=== PATIENT | male | born 1950 | race Caucasian/White ===

== ENCOUNTER 2017-03-16 04:49 | Emergency (ER) | payer MEDICARE, BC ==
[2017-03-16] MEDS ORDERED: cefTRIAXone(*) 1 GM in NS 0.9% 50 ML* 50 ML IVPB ONE (08:22)
[2017-03-16] MEDS ORDERED: Tetan/Diph/Pertus SYR(Tdap)* 0.5 ML SYR(BOOSTRIX) use SYR IM ONE (08:22)
[2017-03-16] MEDS ORDERED: NS 0.9% 1000 ML* 1,000 ML IV ONE (08:29)
--- NOTE | 2017-03-16 08:30 | RAD ---
INDICATION: Productive cough COMPARISON: December 25, 2007 TECHNIQUE: An AP portable view obtained at 0730 hours is submitted. FINDINGS: Bones/Soft Tissues: There are no acute bony findings. Cardiomediastinal: The cardiomediastinal silhouette is normal. Lungs: There are no infiltrates. Pleura: There are no pleural effusions. Other: None IMPRESSION: NORMAL CHEST.
[2017-03-16 09:27] LABS: ABS Basophils 0.1 10^3/ul (0-0.2); ABS Eosinophils 0.3 10^3/ul (0-0.6); ABS Lymphocytes 1.9 10^3/ul (1.0-4.8); ABS Neutrophils 8.7 10^3/ul (1.5-7.7); ABS Nucleated RBC 0 10^3/ul; Eosinophil % 2.6 % (0-6); Hematocrit 38 % (42-52); Hemoglobin 12.8 g/dl (14.0-18.0); Lymphocyte % 15.9 % (25-47); Mean Corpuscular HGB Conc 34 g/dl (31-36); Mean Corpuscular Hemoglobin 32 pg (27-31); Mean Corpuscular Volume 96 fL (80-94); Mean Platelet Volume 8 um3 (7.4-10.4); Nucleated Red Blood Cells % 0; Platelet Count 245 10^3/ul (150-450); Red Blood Count 3.99 10^6/ul (4.0-5.4); Red Cell Distribution Width 13 % (10.5-15)
[2017-03-16 09:42] LABS: EGFR Non-African American 87.3 (>60)
[2017-03-16] MEDS ORDERED: Azithromycin TAB* 250 MG PO ONE (09:53)
[2017-03-16] MEDS ORDERED: Ciprofloxacin 0.3% OPTH.SOL* 2.5 ML BTL BOTH EYES SCH (10:00)
[2017-03-16 10:21] VITALS: BP 143/75
--- NOTE | 2017-03-16 14:39 | ED ---
Enrike Townsend Nilda, scribed for Mariusz Wheat MD on 03/16/17 at 0725 . Influenza-Like Illness - HPI Summary HPI Summary: This patient is a 66 year old M presenting to [facility] accompanied by with a chief complaint of constant flu-like symptoms for the past week. The patient rates the (aching) pain 6/10 in severity. Symptoms aggravated by nothing and alleviated by Robittusin and Tylenol. Patient reports productive cough, congestion, lower right rib pain, and purulent drainage from eyes with eyes sealed shut this morning. He denies fever, chills, and SOB. He states that 5 days ago he visited PCP and had negative flu test. Pt notes symptoms are worsening. - History of Current Complaint Chief Complaint: EDFluSymptoms Hx Obtained From: Patient Onset/Duration: Sudden Onset, Lasting Days, Still Present Severity: Moderate Associated Signs & Symptoms: Cough, Nasal Congestion - Allergy/Home Medications Allergies/Adverse Reactions: Allergies Allergy/AdvReac Type Severity Reaction Status Date / Time No Known Allergies Allergy Verified 06/07/14 14:27 Home Medications: Home Medications Metoprolol Succinate XL TAB* [Toprol XL TAB*] 25 mg PO DAILY 03/16/17 [History Confirmed 03/16/17] Polyethylene Glycol 3350* [Miralax*] 17 gm PO DAILY 03/16/17 [History Confirmed 03/16/17] buPROPion SR TAB* [Wellbutrin SR TAB*] 200 mg PO BID 03/16/17 [History Confirmed 03/16/17] PMH/Surg Hx/FS Hx/Imm Hx Endocrine/Hematology History: Reports: Hx Diabetes, Hx Thyroid Disease Cardiovascular History: Reports: Hx Hypertension Infectious Disease History: Yes Infectious Disease History: Denies: Traveled Outside the [place] in Last 30 Days - Family History Known Family History: Positive: Hypertension - Social History Alcohol Use: None Substance Use Type: Reports: None Smoking Status (MU): Former Smoker Review of Systems Negative: Fever, Chills Positive: Drainage Positive: Other - congestion Positive: Cough. Negative: Shortness Of Breath Positive: Other - lower right rib pain All Other Systems Reviewed And Are Negative: Yes Physical Exam - Summary Physical Exam Summary: VITAL SIGNS: Reviewed. GENERAL: Patient is a well-developed and nourished male who is lying comfortable in the stretcher. Patient is not in any acute respiratory distress. HEAD AND FACE: No signs of trauma. No ecchymosis, hematomas or skull depressions. No sinus tenderness. EYES: PERRLA, EOMI x 2, Bilat injected conjunctiva with dry secretions, no nystagmus. EARS: Hearing grossly intact. Ear canals and tympanic membranes are within normal limits. MOUTH: Oropharynx within normal limits except for dry oral mucosa. NECK: Supple, trachea is midline, no adenopathy, no JVD, no carotid bruit, no c- spine tenderness, neck with full ROM. CHEST: Symmetric, no tenderness at palpation LUNGS: Clear to auscultation bilaterally. No wheezing or crackles. CVS: Regular rate and rhythm, S1 and S2 present, no murmurs or gallops appreciated. ABDOMEN: Soft, non-tender. No signs of distention. No rebound no guarding, and no masses palpated. Bowel sounds are normal. EXTREMITIES: FROM in all major joints, no edema, no cyanosis or clubbing. NEURO: Alert and oriented x 3. No acute neurological deficits. Speech is normal and follows commands. SKIN: Dry and warm Triage Information Reviewed: Yes Vital Signs On Initial Exam: Initial Vitals Temp Pulse Resp BP Pulse Ox 98.3 F 76 18 167/81 98 03/16/17 04:51 03/16/17 04:51 03/16/17 04:51 03/16/17 04:51 03/16/17 04:51 Vital Signs Reviewed: Yes Diagnostics - Vital Signs Vital Signs Temp Pulse Resp BP Pulse Ox 03/16/17 04:51 98.3 F 76 18 167/81 98 - Laboratory Lab Results: Lab Results 03/16/17 03/16/17 03/16/17 Range/Units 08:12 09:07 09:07 WBC 12.0 H (3.5-10.8) 10^3/ul RBC 3.99 L (4.0-5.4) 10^6/ul Hgb 12.8 L (14.0-18.0) g/dl Hct 38 L (42-52) % MCV 96 H (80-94) fL MCH 32 H (27-31) pg MCHC 34 (31-36) g/dl RDW 13 (10.5-15) % Plt Count 245 (150-450) 10^3/ul MPV 8 (7.4-10.4) um3 Neut % (Auto) 72.4 (38-83) % Lymph % (Auto) 15.9 L (25-47) % [place] % (Auto) 8.5 (1-9) % Eos % (Auto) 2.6 (0-6) % Baso % (Auto) 0.6 (0-2) % Absolute Neuts (auto) 8.7 H (1.5-7.7) 10^3/ul Absolute Lymphs (auto) 1.9 (1.0-4.8) 10^3/ul Absolute Monos (auto) 1.0 H (0-0.8) 10^3/ul Absolute Eos (auto) 0.3 (0-0.6) 10^3/ul Absolute Basos (auto) 0.1 (0-0.2) 10^3/ul Absolute Nucleated RBC 0 10^3/ul Nucleated RBC % 0 Sodium 133 (133-145) mmol/L Potassium 3.8 (3.5-5.0) mmol/L Chloride 103 (101-111) mmol/L Carbon Dioxide 25 (22-32) mmol/L Anion Gap 5 (2-11) mmol/L BUN 15 (6-24) mg/dL Creatinine 0.87 (0.67-1.17) mg/dL Est GFR ( Amer) 112.2 (>60) Est GFR (Non-Af Amer) 87.3 (>60) BUN/Creatinine Ratio 17.2 (8-20) Glucose 200 H (70-100) mg/dL Lactic Acid (0.5-2.0) mmol/L Calcium 9.2 (8.6-10.3) mg/dL Total Bilirubin 0.40 (0.2-1.0) mg/dL AST 11 L (13-39) U/L ALT 6 L (7-52) U/L Alkaline Phosphatase 68 (34-104) U/L C-Reactive Protein 48.15 H (< 5.00) mg/L Total Protein 6.8 (6.4-8.9) g/dL Albumin 3.8 (3.2-5.2) g/dL Globulin 3.0 (2-4) g/dL Albumin/Globulin Ratio 1.3 (1-3) Influenza A (Rapid) Negative (Negative) Influenza B (Rapid) Negative (Negative) 03/16/17 Range/Units 09:07 WBC (3.5-10.8) 10^3/ul RBC (4.0-5.4) 10^6/ul Hgb (14.0-18.0) g/dl Hct (42-52) % MCV (80-94) fL MCH (27-31) pg MCHC (31-36) g/dl RDW (10.5-15) % Plt Count (150-450) 10^3/ul MPV (7.4-10.4) um3 Neut % (Auto) (38-83) % Lymph % (Auto) (25-47) % [place] % (Auto) (1-9) % Eos % (Auto) (0-6) % Baso % (Auto) (0-2) % Absolute Neuts (auto) (1.5-7.7) 10^3/ul Absolute Lymphs (auto) (1.0-4.8) 10^3/ul Absolute Monos (auto) (0-0.8) 10^3/ul Absolute Eos (auto) (0-0.6) 10^3/ul Absolute Basos (auto) (0-0.2) 10^3/ul Absolute Nucleated RBC 10^3/ul Nucleated RBC % Sodium (133-145) mmol/L Potassium (3.5-5.0) mmol/L Chloride (101-111) mmol/L Carbon Dioxide (22-32) mmol/L Anion Gap (2-11) mmol/L BUN (6-24) mg/dL Creatinine (0.67-1.17) mg/dL Est GFR ( Amer) (>60) Est GFR (Non-Af Amer) (>60) BUN/Creatinine Ratio (8-20) Glucose (70-100) mg/dL Lactic Acid 0.8 (0.5-2.0) mmol/L Calcium (8.6-10.3) mg/dL Total Bilirubin (0.2-1.0) mg/dL AST (13-39) U/L ALT (7-52) U/L Alkaline Phosphatase (34-104) U/L C-Reactive Protein (< 5.00) mg/L Total Protein (6.4-8.9) g/dL Albumin (3.2-5.2) g/dL Globulin (2-4) g/dL Albumin/Globulin Ratio (1-3) Influenza A (Rapid) (Negative) Influenza B (Rapid) (Negative) Result Diagrams: 03/16/17 09:07 03/16/17 09:07 Lab Statement: Any lab studies that have been ordered have been reviewed, and results considered in the medical decision making process. - Radiology CXR Radiology Interpretation Completed By: Radiologist - CXR, per radiologist, reveals normal chest. Dr. Wheat has reviewed this radiology report. - EKG 853 Cardiac Rate: Bradycardia EKG Rhythm: Sinus Bradycardia - 53 bpm EKG Comparison: No Significant Change - 12/25/07 Flu Symptom Course/Dx - Course Assessment/Plan: This patient is a 66 year old M presenting to [facility] accompanied by with a chief complaint of constant flu-like symptoms for the past week. The patient rates the (aching) pain 6/10 in severity. Symptoms aggravated by nothing and alleviated by Robittusin and Tylenol. Patient reports productive cough, congestion, lower right rib pain, and purulent drainage from eyes with eyes sealed shut this morning. He denies fever, chills, and SOB. He states that 5 days ago he visited PCP and had negative flu test. Pt notes symptoms are worsening. Influenza A negative. Influenza B negative. An EKG reveals Sinus bradycardia, 53 bpm, similar to 12/25/07 EKG. CXR, per radiologist, reveals normal chest. Dr. Wheat has reviewed this radiology report. In the ED course, the patient was given Aithomycin for which I think he has early pneumonia. I also gave cipor opthalmic for the bilateral conjunctivitis. Patient is feeling better. The pt is hemodynamically stable, alert and oriented x3. Pt will be D/C with Dx of conjunctivitis and clinical PNA with a prescription for Zithromax. Pt understands and is agreeable with this plan. I discussed all the findings and test results with the patient. Patient was instructed to return to the emergency room immediately if any of the symptoms return or worsens. Plan of care was discussed with the patient and understands and agrees. All questions were answered at patient satisfaction. There were no further complaints or concerns. Lung exam before discharge: CTA B /L. Good air exchange. No wheezing or crackles heard. CVS: S1 and S2 present. No murmurs appreciated. Patient is alert and oriented x 3. Patient is hemodynamically stable. Patient will be discharged home with follow up PCP in the next 2-3 days - Diagnoses Provider Diagnoses: Conjunctivitis, Pneumonia Discharge - Discharge Plan Condition: Stable Disposition: HOME Prescriptions: Azithromycin TAB* [Zithromax TAB (Z-JOSE J) 250 mg #6 tabs] 250 mg PO DAILY #4 tab Patient Education Materials: Pneumonia (ED), Conjunctivitis (ED) Referrals: Colt Casiano MD [Primary Care Provider] - 3 Days Additional Instructions: RETURN TO THE EMERGENCY DEPARTMENT FOR CHANGING OR WORSENING SYMPTOMS. The documentation as recorded by the Enrike gage Nilda accurately reflects the service I personally performed and the decisions made by Jarret valentine Walter, MD.
== END 2017-03-16 10:20 | disposition home or self-care (01) ==
LOC: ED 04:49
DX: J18.9 Pneumonia, unspecified organism (principal); R05 Cough; R09.81 Nasal congestion; Z87.891 Personal history of nicotine dependence; H10.9 Unspecified conjunctivitis
CPT/HCPCS: 36415; 71045; 80053; 83605; 85025; 86140; 87040; 87502; 93005; 99283; A9270-GY

== ENCOUNTER 2017-04-24 18:02 | Inpatient (IN) | payer MEDICARE, BC ==
[2017-04-24 18:37] LABS: ABS Basophils 0.1 10^3/ul (0-0.2); ABS Eosinophils 0.2 10^3/ul (0-0.6); ABS Lymphocytes 1.8 10^3/ul (1.0-4.8); ABS Monocytes 0.5 10^3/ul (0-0.8); ABS Neutrophils 5.5 10^3/ul (1.5-7.7); ABS Nucleated RBC 0 10^3/ul; Eosinophil % 2.1 % (0-6); Hematocrit 39 % (42-52); Hemoglobin 13.3 g/dl (14.0-18.0); Lymphocyte % 22.4 % (25-47); Mean Corpuscular HGB Conc 34 g/dl (31-36); Mean Corpuscular Hemoglobin 33 pg (27-31); Mean Corpuscular Volume 96 fL (80-94); Mean Platelet Volume 8 um3 (7.4-10.4); Nucleated Red Blood Cells % 0.1; Platelet Count 210 10^3/ul (150-450); Red Blood Count 4.05 10^6/ul (4.0-5.4); Red Cell Distribution Width 14 % (10.5-15); White Blood Count 8.1 10^3/ul (3.5-10.8)
[2017-04-24 18:46] LABS: INR 0.87 (0.77-1.02)
--- NOTE | 2017-04-24 18:47 | RAD ---
INDICATION: Code haines, neurologic changes. COMPARISON: Comparison is made with a prior CT of the brain from March 26, 2006. TECHNIQUE: Contiguous axial sections of the brain were obtained from the skull base to the vertex without contrast. FINDINGS: The ventricles, cisterns and sulci are within normal limits. No significant focal abnormality or mass effect is seen. There is no evidence for hemorrhage. No significant focal osseous abnormality is seen. The visualized portion of the paranasal sinuses and mastoid air cells appear clear. The results of this examination were called to the referring clinician at 1843 hours. IMPRESSION: NO EVIDENCE FOR GROSS ACUTE INFARCT, MASS EFFECT OR HEMORRHAGE.
[2017-04-24 18:57] LABS: EGFR Non-African American 66.6 (>60)
[2017-04-24] MEDS ORDERED: Alteplase* 100 MG VIAL IV ONE ×2 (19:21)
[2017-04-24] MEDS ORDERED: ALTEPLASE IV ONE (19:40)
--- NOTE | 2017-04-24 19:54 | RAD ---
INDICATION: Neurologic changes, code haines. COMPARISON: March 16, 2017. TECHNIQUE: A portable view of the chest was obtained. FINDINGS: Cardiac and mediastinal contours appear to be within normal limits. The lungs are clear. No pleural effusion is seen. IMPRESSION: NO EVIDENCE FOR ACUTE DISEASE.
[2017-04-24] MEDS ORDERED: Iodixanol* (CONTRAST) 320 MG/ML 100 ML SDV IV ONE (20:06)
--- NOTE | 2017-04-24 20:59 | RAD ---
INDICATION: CVA. COMPARISON: Comparison is made with a prior CT of the brain from April 24, 2017. TECHNIQUE: A CT angiogram of the head and neck was performed following intravenous injection of 80 ml of Visipaque 320 nonionic contrast. Contiguous axial sections were obtained from the thoracic inlet through the skull vertex. Images were reconstructed in the coronal and sagittal planes and in a 3-D volume rendered format. The distal cervical internal carotid artery diameter is used as the denominator for stenosis measurement. FINDINGS: RIGHT CAROTID: The common and internal carotid arteries appear patent without evidence for hemodynamically significant stenosis. There is mild soft and calcific plaque present within the carotid bulb and proximal internal carotid artery. LEFT CAROTID: The common and internal carotid arteries appear patent without evidence for stenosis. VERTEBRALS: The vertebral arteries appear patent and bilaterally symmetric. CTA BRAIN: The internal carotid, anterior and middle cerebral arteries appear patent without evidence for high-grade stenosis or occlusion. The vertebral, basilar and posterior cerebral arteries appear patent without evidence for high-grade stenosis or occlusion. No gross focal perfusion abnormalities are seen. No aneurysm or vascular malformation is seen. NECK: No significant enlarged lymph nodes are seen within the neck. The thyroid, parotid and submandibular glands appear to be within normal limits. The lung apices appear clear. The paranasal sinuses and mastoid air cells appear clear IMPRESSION: 1. NO EVIDENCE FOR HEMODYNAMICALLY SIGNIFICANT CAROTID STENOSIS. 2. NO EVIDENCE FOR LARGE VESSEL INTRACRANIAL THROMBUS. CPT II Codes: 3100F
[2017-04-24] MEDS ORDERED: Dextrose 50% Syringe 50 ML* 25 GM/50 ML SYRINGE IV PUSH PRN (21:45)
[2017-04-24] MEDS ORDERED: Ondansetron INJ* 2 MG/ML VIAL IV PRN (21:47)
[2017-04-24] MEDS ORDERED: Acetaminophen TAB* 325 MG PO PRN (21:47)
[2017-04-24 23:42] LABS: Urine Appearance Clear; Urine Blood 1+ (Negative); Urine Color Straw; Urine Ketones Negative (Negative); Urine Protein Negative (Negative); Urine Specific Gravity 1.033 (1.010-1.030); Urine Urobilinogen Negative (Negative)
[2017-04-25] MEDS: Famotidine IV* 10 MG/ML 2 ML (20 mg) IV SCH ×2 (00:11→08:54)
--- NOTE | 2017-04-25 04:02 | HP ---
CC: Dr. Casiano; Dr. Krishnan* HISTORY AND PHYSICAL: DATE OF ADMISSION: 04/24/17 PRIMARY CARE PROVIDER: Dr. Casiano. ATTENDING PHYSICIAN WHILE IN THE HOSPITAL: Dr. St* (report being dictated by Esha Rossi NP). CHIEF COMPLAINT: 1. Double vision. 2. Unsteady gait. HISTORY OF PRESENT ILLNESS: Mr. Bello is a 66-year-old male patient. He has a history of hyperlipidemia, hypertension, depression, diabetes, and a history of bipolar disorder. He comes into the ED today stating that he was going for a walk around 5 o'clock to 5:30, and he noticed during his walk, he started having trouble walking. He was walking to the left. He was having double vision. He thinks this may have happened around to 6. He got home right around 6. He talked to his and she was concerned that there may be something serious going on, so they came right into the hospital. He denied having any facial drooping. No slurred speech. No difficulty with word finding. He had no weakness to one extremity or lower extremity. He denied having any headache and he said he had double vision with both of his eyes being open. He presented to the ED, the initial findings, although they were concerned for stroke, he denied any recent fevers, chills, nausea, vomiting, or any other associated symptoms. Because of the concern for stroke, tPA was given and we were asked to evaluate for admission. PAST MEDICAL HISTORY: Significant for: 1. Hypertension. 2. Hyperlipidemia. 3. Depression. 4. Diabetes. 5. Bipolar disorder. 6. Hypothyroidism. PAST SURGICAL HISTORY: The patient has had: 1. Hernia repair. 2. Left lower extremity ORIF. MEDICATIONS: Home medications include: 1. Quinapril 40 mg p.o. b.i.d. 2. Synthroid 25 mcg daily. 3. Metformin 500 mg p.o. b.i.d. 4. Lamictal 200 mg p.o. daily. 5. Toprol 25 mg daily. 6. Glyburide 2.5 mg p.o. b.i.d. 7. Zocor 20 mg p.o. daily. 8. [place] 600 mg at bedtime, 300 mg in the morning. 9. Trazodone 50 mg daily. 10. Wellbutrin 200 mg p.o. b.i.d. 11. Viagra 25 mg p.o. daily as needed. ALLERGIES TO MEDICATIONS: Include no known drug allergies. FAMILY HISTORY: His mother had diabetes. His father in a car accident. SOCIAL HISTORY: He does not smoke, does not drink. Surrogate decision maker is his . REVIEW OF SYSTEMS: There is no documented fever. He denied having any significant weight change. There was double vision. He denies having any ear discharge. There is no rhinorrhea. He denies having any sore throat. There is no thyroid enlargement. He denies having any chest pain. There is no orthopnea , there is no nocturnal dyspnea. He denies having any abdominal pain. There was no nausea, no vomiting. No dysuria, no frequency. There was no seizure, no loss of consciousness. No pruritus, no skin ulcerations. Review of 14 systems completed, all others negative. PHYSICAL EXAMINATION GENERAL: At this time, Mr. Bello is a 66-year-old male patient. He appears to be well nourished, well developed. He is sitting in the ED stretcher. He does not appear to be in any acute distress. VITAL SIGNS: Blood pressure 134/60 with a pulse of 49, respirations 16, O2 sat 97%, temperature 98.1. HEENT: Head atraumatic, normocephalic. Eyes, EOMs are intact. Sclerae anicteric and not pale. Throat: Oral mucosa appears to be moist. No oropharyngeal erythema. NECK: Supple. LUNGS: Clear to auscultation bilaterally. No wheezes, rales, or rhonchi. HEART: Sounds S1, S2. Regular rate and rhythm. He is bradycardic. ABDOMEN: Soft. It was flat, nontender. Bowel sounds were present. EXTREMITIES: Pulses were 2+ throughout. He is moving all 4 extremities with 5/ 5 strength. NEUROLOGIC: He is awake now, he is alert, he is oriented x3. His tongue is midline. Form Designer are equal. [id number] intact bilaterally. Wlyj-tj-nbck intact bilaterally. Cranial nerves II through XII were intact. Visual fournier were intact. Speech was clear. He had no gross focal deficits currently that I can elicit. SKIN: Grossly intact. DIAGNOSTIC STUDIES/LAB DATA: WBC of 8.1, RBC of 4.05, hemoglobin 13.3, hematocrit of 39, platelet count of 210. INR of 0.87, PTT of 30.6. Sodium 136 , potassium 4.2, chloride 105, bicarb 25, BUN 14, creatinine 1.10, glucose 98, lactate 4.8, calcium 9.9. Total bili 0.7, AST 14, ALT 11, alk phos 47. Troponin 0.01. Albumin 4.3. Toxicology had lithium level of 0.96. Brain CT obtained today showed no evidence for gross acute infarct, mass effect , or hemorrhage. Chest x-ray showed no evidence for acute disease. EKG showed sinus bradycardia, rate of 49. No ST elevations or T-wave inversions were noted. Had an EKG from 10 years ago. At that point, there was sinus bradycardia with a rate of 51. He had a CTA of the head and neck, impression: No evidence for hemodynamically significant carotid stenosis. No evidence for large vessel intracranial thrombus. Old medical records were reviewed. ASSESSMENT AND PLAN: Mr. Bello is a 66-year-old male patient coming into the ED today with complaints of unsteady gait and visual disturbance. There was concern for cerebrovascular accident. TPA was given. We were asked for evaluate for admission. He will be admitted under inpatient status for: 1. Cerebrovascular accident. Again, at this point, his symptoms are resolved. His presenting exam findings were he did have some limb ataxia particularly in the left lower extremity. He had a small visual field defect according to Dr. Ace and in addition to this, also had some numbness to the left leg along with double vision. These symptoms are now improved. He is status post tPA. He will be on clear liquid diet for the first 24 hours, on bed rest for 24 hours. Frequent neuro checks have been ordered for the tPA protocol. In addition to this, we will get an MRI tomorrow, CT brain in 24 hours. He already had the CTA. Echo is ordered. He does state that he takes some aspirin routinely as well. So, we may need to consider another antiplatelet therapy, but I again this will be at the discretion of Neurology. In addition to this, we may consider adding statin therapy. The patient's lipid panel and A1c is pending. We will get PT involved when and possibly OT and now a nursing swallow eval has been ordered. 2. Hypertension in the setting of acute cerebrovascular accident. We will treat for blood pressure systolics greater than 180 and diastolics greater than 105. I will treat and we will continue to follow. 3. Hyperlipidemia. We will check lipid panel in the morning. I will continue his Zocor for now. 4. Depression and bipolar disorder. Continue meds as prescribed. 5. Diabetes. I will put him on insulin sliding scale. 6. DVT prophylaxis. Because of tPA, he will be placed on SCDs. 7. Code status. Full code. 8. Fluids, electrolytes, and nutrition. Clear liquid diet. TIME SPENT: On the admission was approximately 60 minutes, greater than half the time spent [id number] with the patient, obtaining my history and physical , other half time spent going over the plan of care with the patient and implementing plan of care. I did discuss the plan of care with my attending Dr. St; he is in agreement. ESHA ROSSI, MARTÍN [id number]/CPS #: [id number] CHERI
[2017-04-25] MEDS: Levothyroxine TAB* 25 MCG TAB PO SCH (06:15)
[2017-04-25 07:14] LABS: ABS Basophils 0.1 10^3/ul (0-0.2); ABS Eosinophils 0.3 10^3/ul (0-0.6); ABS Lymphocytes 1.4 10^3/ul (1.0-4.8); ABS Monocytes 0.7 10^3/ul (0-0.8); ABS Neutrophils 5.8 10^3/ul (1.5-7.7); ABS Nucleated RBC 0 10^3/ul; Eosinophil % 3.7 % (0-6); Hematocrit 38 % (42-52); Hemoglobin 13.1 g/dl (14.0-18.0); Lymphocyte % 17.1 % (25-47); Mean Corpuscular HGB Conc 35 g/dl (31-36); Mean Corpuscular Hemoglobin 33 pg (27-31); Mean Corpuscular Volume 96 fL (80-94); Mean Platelet Volume 9 um3 (7.4-10.4); Nucleated Red Blood Cells % 0.1; Platelet Count 203 10^3/ul (150-450); Red Blood Count 3.97 10^6/ul (4.0-5.4); Red Cell Distribution Width 14 % (10.5-15); White Blood Count 8.3 10^3/ul (3.5-10.8)
[2017-04-25] MEDS: Insulin LISPRO* 1 UNITS UNIT SUBCUT SCH ×3 (08:01→16:44)
[2017-04-25] MEDS: lamoTRIgine TAB(*) 100 MG PO SCH (08:54)
[2017-04-25] MEDS: traZODone TAB* 50 MG TAB PO SCH (08:54)
[2017-04-25] MEDS: Atorvastatin* 10 MG TAB PO SCH (08:54)
[2017-04-25] MEDS: buPROPion SR TAB.SR* 100 MG PO SCH ×2 (08:55→20:26)
[2017-04-25] MEDS: Lithium Carbonate TAB* 300 MG PO SCH (08:55)
--- NOTE | 2017-04-25 10:31 | PN ---
Subjective Date of Service: 04/25/17 Interval History: Pt feels well and wants to go home Left leg weakness and diplopia resolved inn ED yesterday Objective Active Medications: Acetaminophen (Tylenol Tab*) 650 mg PO Q4H PRN PRN Reason: FEVER/PAIN Atorvastatin Calcium (Lipitor*) 10 mg PO DAILY [facility] Last Admin: 04/25/17 08:54 Dose: 10 mg Bupropion HCl (Wellbutrin Sr Tab*) 200 mg PO BID [facility] Last Admin: 04/25/17 08:55 Dose: 200 mg Dextrose (D50w Syringe 50 Ml*) 12.5 gm IV PUSH .FOR FS < 60 - SS PRN PRN Reason: FS < 60 Insulin Human Lispro (Humalog*) 0 units SUBCUT AC [facility] PRN Reason: Protocol Last Admin: 04/25/17 08:01 Dose: Not Given Lamotrigine (Lamictal Tab(*)) 200 mg PO DAILY [facility] Last Admin: 04/25/17 08:54 Dose: 200 mg Levothyroxine Sodium (Synthroid Tab*) 25 mcg PO DAILY@0600 [facility] Last Admin: 04/25/17 06:15 Dose: 25 mcg [place] Carbonate ([place] Carbonate Tab*) 600 mg PO QPM [facility] [place] Carbonate ([place] Carbonate Tab*) 300 mg PO QAM [facility] Last Admin: 04/25/17 08:55 Dose: 300 mg Ondansetron HCl (Zofran Inj*) 4 mg IV Q6H PRN PRN Reason: NAUSEA Trazodone HCl (Desyrel Tab*) 50 mg PO DAILY [facility] Last Admin: 04/25/17 08:54 Dose: 50 mg Vital Signs - 8 hr 04/25/17 04/25/17 04/25/17 03:00 03:03 04:00 Temperature 99.4 F Pulse Rate 46 47 44 Respiratory 15 15 13 Rate Blood Pressure 138/75 (mmHg) O2 Sat by Pulse 98 98 96 Oximetry 04/25/17 04/25/17 04/25/17 04:01 05:00 05:01 Temperature Pulse Rate 46 44 44 Respiratory 16 14 15 Rate Blood Pressure 133/70 112/62 (mmHg) O2 Sat by Pulse 97 96 Oximetry 04/25/17 04/25/17 04/25/17 05:44 06:00 06:55 Temperature Pulse Rate 44 45 45 Respiratory 14 17 15 Rate Blood Pressure 100/56 (mmHg) O2 Sat by Pulse 96 96 96 Oximetry 04/25/17 04/25/17 04/25/17 07:00 07:46 08:00 Temperature Pulse Rate 45 46 46 Respiratory 15 19 16 Rate Blood Pressure 106/60 135/68 (mmHg) O2 Sat by Pulse 96 98 97 Oximetry 04/25/17 04/25/17 04/25/17 08:05 08:11 08:25 Temperature 99.3 F Pulse Rate 48 46 Respiratory 15 16 Rate Blood Pressure (mmHg) O2 Sat by Pulse 97 96 Oximetry 04/25/17 04/25/17 04/25/17 09:00 09:01 09:25 Temperature Pulse Rate 49 50 49 Respiratory 19 21 19 Rate Blood Pressure 126/71 (mmHg) O2 Sat by Pulse 97 98 97 Oximetry 04/25/17 04/25/17 10:00 10:02 Temperature Pulse Rate 46 47 Respiratory 17 17 Rate Blood Pressure 113/63 (mmHg) O2 Sat by Pulse 96 96 Oximetry Oxygen Devices in Use Now: None Appearance: 66 yo M in nAD, AAOx3 Eyes: No Scleral Icterus, PERRLA Ears/Nose/Mouth/Throat: NL Teeth, Lips, Gums, Mucous Membranes Moist Neck: NL Appearance and Movements; NL JVP, Trachea Midline Respiratory: Symmetrical Chest Expansion and Respiratory Effort, Clear to Auscultation Cardiovascular: NL Sounds; No Murmurs; No JVD, RRR Abdominal: NL Sounds; No Tenderness; No Distention, No Hepatosplenomegaly Lymphatic: No Cervical Adenopathy Extremities: No Edema, No Clubbing, Cyanosis Skin: No Rash or Ulcers, No Nodules or Sclerosis Neurological: Alert and Oriented x 3, NL Muscle Strength and Tone Result Diagrams: 04/25/17 06:26 04/25/17 06:26 Microbiology and Other Data: Microbiology 04/24/17 22:58 Nasal Screen MRSA (PCR)(DOMINIK) - Final Nasal Mrsa Not Detected Assess/Plan/Problems-Billing Assessment: 66 yo M with h/o HTN, DM2 , bipolar disease presents with left leg weakness and diplopia treated with tPA in ED - Patient Problems (1) CVA (cerebral vascular accident) Comment: Acute , ischemic No residual deficit noted MRI scheduled for today. CTA unremarkable Awaiting neurology's recommendation no dyslipidemia identified, but due to CVA lipitor started (2) HTN (hypertension) Comment: SBP in 130;'s , ACEI on hold (3) DM2 (diabetes mellitus, type 2) Comment: Hb A1C 6.3 Glyburide, metfomin held Cont ISS (4) Bipolar disease, chronic Comment: cont home meds:lamictal, trazodone, lithium , bupropion (5) DVT prophylaxis Comment: no anticoagulants due to TPA Status and Disposition: inpatient
--- NOTE | 2017-04-25 11:38 | RAD ---
Indication: Difficulty walking. Double vision evening of April 24, 2014. Comparison: April 24, 2017 CT angiogram head and neck. April 24, 2017 CT head. Technique: [employer] [place] 1.5 [place] [id number] with GEM suite. MRI brain without contrast. Report: Diffusion series is negative for acute or subacute ischemia. Susceptibility series is negative for stigmata of hemosiderin deposition to indicate previous hemorrhage. The sulci, ventricles, and basal cisterns are within normal limits for age. A few small minimally prominent perivascular spaces are noted at the basal ganglia. Small burden of nonspecific tiny T2 FLAIR frontal and parietal white matter hyperintensities are noted. No intra or extra-axial mass lesion or fluid collection. Unremarkable orbital contents. Preserved major intracranial flow-voids. Unremarkable calvarium and skull base. Clear paranasal sinuses and mastoid air spaces. Unremarkable scalp. IMPRESSION: 1. No evidence for acute or subacute ischemia. 2. Minimal burden of tiny T2 FLAIR hyperintensities at the cerebral white matter. While nonspecific these foci are most likely attributable to chronic small vessel ischemic disease given the patient's age.
--- NOTE | 2017-04-25 15:46 | ECHO ---
Patient: AMANDA GALLARDO [facility] Rec#: [id number] : 1950 Date: 04/25/2017 Age: 66y Height: 172.72 cm / 68.0 in Weight: 74.39 kg / 164.0 lbs Sex: M BSA: 1.88 Room#: [facility] Admit Date#: 04/24/2017 Type: Inpatient Referring: Dl Rossi NP Reading: Manuela Fritz MD Supervisor Area: Khushbu Holguin RDCS CC: Colt Casiano MD Transthoracic Echocardiogram Indication: CVA BP: 106/60 HR: 47 Rhythm: Bradycardia Findings History: HTN,HLD,DM,bipolar,hypothyroidism, CVA with TPA rx. Technical Comments: The study quality is good. Completed at 1220. Left Ventricle: The left ventricular chamber size is normal. Mild concentric left ventricular hypertrophy is observed. Global left ventricular wall motion and contractility are within normal limits. The estimated ejection fraction is 55-60%. Normal left ventricular diastolic filling is observed. Left Atrium: The left atrium is mildly dilated.by diameter measurements, volume estimates are normal. Right Ventricle: The right ventricular cavity size is normal. The right ventricular global systolic function is normal. Right Atrium: The right atrial cavity size is normal. A patent foramen ovale is not demonstrated with color Doppler and agitated contrast. Negative contrast noted in the right atrium, this could represent inflow from IVC or shunt. Aortic Valve: The aortic valve is trileaflet. There is no evidence of aortic valve thickening. There is no evidence of aortic regurgitation. There is no evidence of aortic stenosis. Mitral Valve: The mitral valve leaflets are mildly thickened. There is mild mitral regurgitation. There is no evidence of mitral stenosis. Tricuspid Valve: The tricuspid valve leaflets are normal. There is trace tricuspid regurgitation. Unable to estimate the right ventricular systolic pressure. There is no tricuspid stenosis. Pulmonic Valve: The pulmonic valve appears normal. There is trace to mild pulmonic regurgitation. There is no pulmonic stenosis. Pericardium: The pericardium appears normal. Aorta: There is no dilatation of the ascending aorta. There is no dilatation of the aortic arch. There is no dilation of the aortic root. Pulmonary Artery: The main pulmonary artery appears normal. Venous: The inferior vena cava appears normal in size. There is a greater than 50% respiratory change in the inferior vena cava dimension. Conclusions Mild concentric left ventricular hypertrophy is observed. Global left ventricular wall motion and contractility are within normal limits. The estimated ejection fraction is 55-60%. The right ventricular global systolic function is normal. There is mild mitral regurgitation. There is trace tricuspid regurgitation. No patent foramen ovale demonstrated with color Doppler and agitated contrast. Negative contrast noted in the right atrium, this could represent inflow from IVC or shunt. No prior echo to compare. Measurements Name Value Normal Range RVIDd (AP) 2D 2.6 cm (0.9 - 2.6) RVDdMajor (2D) 3.8 cm (2.2 - 4.4) RAd ISD 4CH 4.9 cm (3.4 - 4.9) RA (A4C)W 3.9 cm (2.9 - 4.6) IVSd (2D) 1.1 cm (0.6 - 1) LVPWd (2D) 1.1 cm (0.6 - 1) LVIDd (2D) 4.4 cm (3.6 - 5.4) LVIDs (2D) 2.5 cm - LV FS (2D) 44 % (25 - 45) Aortic Annulus 2 cm (1.4 - 2.6) Ao root diameter (2D) 3.3 cm (2.1 - 3.5) Ascending Ao 3 cm (2.1 - 3.4) Aortic arch 2.7 cm (1.8 - 3.4) Descending Ao 0.6 cm - LA dimension (AP) 2D 4.7 cm (2.3 - 3.8) LAd ISD 4CH 5.2 cm (2.9 - 5.3) LA ISD 4CH W 4.4 cm (2.5 - 4.5) Name Value Normal Range LA ESV SP 4CH (A/L) 56 ml - LA ESV SP 2CH (A/L) 50 ml - LA ESV BP (A/L) 53 ml - LA ESV BP (A/L) index 28.4 ml/m2 - LA ESV SP 4CH (MOD) 47 ml - LA ESV SP 2CH (MOD) 47 ml - Name Value Normal Range MV E-wave Vmax 0.8 m/sec - MV deceleration time 204 msec - MV A-wave Vmax 0.7 m/sec - MV E:A ratio 1.17 ratio - Name Value Normal Range AV Vmax 1.7 m/sec - AV VTI 41.3 cm - AV peak gradient 11 mmHg - AV mean gradient 4.83 mmHg - LVOT Vmax 1 m/sec - LVOT VTI 21.3 cm - LVOT peak gradient 4.24 mmHg - LVOT mean gradient 1.66 mmHg - Name Value Normal Range MR Vmax 4.3 m/sec - MR VTI 147.7 cm - Name Value Normal Range IVC diameter 2.1 cm - Name Value Normal Range PV Vmax 1.2 m/sec - PV peak gradient 5.32 mmHg -
[2017-04-25] MEDS ORDERED: Lithium Carbonate TAB* 300 MG PO SCH (18:00)
--- NOTE | 2017-04-25 20:25 | RAD ---
INDICATION: CVA, status post TPA. COMPARISON: Comparison is made with a prior CT of the brain from April 24, 2017. TECHNIQUE: Contiguous axial sections of the brain were obtained from the skull base to the vertex without contrast. FINDINGS: The ventricles, cisterns and sulci are within normal limits. No significant focal abnormality or mass effect is seen. There is no evidence for hemorrhage. No significant focal osseous abnormality is seen. The visualized portion of the paranasal sinuses and mastoid air cells appear clear. IMPRESSION: NO EVIDENCE FOR GROSS ACUTE INFARCT, MASS EFFECT OR HEMORRHAGE.
[2017-04-25] MEDS ORDERED: Omeprazole CAP* 20 MG PO SCH (21:00)
--- NOTE | 2017-04-25 22:12 | CONS ---
CC: Dr. Casiano * NEUROLOGY CONSULTATION: DATE OF CONSULTATION: 04/25/17 LOCATION: He is an inpatient in intensive care unit, bed 8. REFERRING PHYSICIAN: Dr. Nair. CHIEF COMPLAINT: Double vision and unsteady gait. HISTORY OF PRESENT ILLNESS: Andre Bello is a 66-year-old gentleman, who was out for a walk yesterday about 5:30 in the evening when he noted he was drifting repeatedly to the left. He was walking on the side of the road and had be to be careful. He did not fall in a ditch or into the road. He also developed horizontal diplopia around the same time. He made it home and continued with horizontal diplopia and unsteadiness and his and he came into the emergency room. 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 His symptoms resolved completely by about the 2- hour constantine after the onset. He has had no symptoms since. He had a CT of the brain and CT angiogram when he first came in and those were unremarkable. He had a brain MRI today, which was likewise unremarkable. He has a history of diabetes and hypertension and he has been treated for over 30 years. He says his blood pressures are generally under good control as is his diabetes. He is a nonsmoker. There is no history of heart disease. He takes atorvastatin at home. MEDICATIONS: Include: 1. Atorvastatin 10 mg p.o. daily. 2. Electra carbonate 600 mg q.p.m. and 300 mg p.o. q.a.m. 3. Omeprazole 20 mg p.o. b.i.d. 4. Trazodone 50 mg p.o. q.h.s. 5. Wellbutrin 200 mg p.o. b.i.d. 6. Glyburide 2.5 mg p.o. b.i.d. 7. Metoprolol 25 mg p.o. daily. 8. Lamotrigine 200 mg p.o. daily. 9. Metformin 500 mg p.o. b.i.d. 10. Levothyroxine 25 mcg p.o. daily. 11. Quinapril 40 mg p.o. b.i.d. 12. Aspirin 81 mg p.o. daily. ALLERGIES: He does not have any drug allergies. FAMILY HISTORY: Noncontributory. SOCIAL HISTORY: He does not drink alcohol at all. He lives at home with his . For several years, he gets episodes of right ear pain such that it is exquisitely tender to touch. It would last several hours and resolve. It typically occurs in the evening and is gone by the next morning. REVIEW OF SYSTEMS: Negative for falls, headaches, other change in vision, slurred speech, facial weakness, numbness or weakness in his limbs. PHYSICAL EXAM: He is well hydrated and well nourished. Temperature 99.3 temporally, blood pressure 126/66, heart rate running in the 40s and 50s and in sinus on the monitor, respiratory rate 20, and oxygen saturations 98% on room air. Lungs: Clear anterolaterally. Heart is in a regular rhythm without murmurs. There are no cervical bruits. Neurologic exam: Pupils react equally from 4 to 2.5 mm. Funduscopic exam is normal. Eye movements are normal and visual fournier are full to confrontation. There is no ptosis. Facial musculature is symmetric. Facial sensation to light touch is symmetric. Tongue protrudes in midline and palate rises symmetrically. There is no dysarthria. Hearing is intact. Motor exam reveals normal muscle tone and strength in the limbs proximally and distally. There is no drift of any limb. Sensory exam is notable for mild vibratory loss in the toes, but normal light touch. Pin discrimination is normal in the limbs. He has a core sustention and action tremor in both hands, which he says it has been there and attributes to his lithium. Ihom-au-jmns maneuver is normal. Finger taps are normal in the hands. Reflexes are hypoactive, but present and symmetric. Ankle reflexes are trace. Plantar responses are flexor. He is able to ambulate short distance in the ICU room. The patient was little unsteady when he first got up and he had not been out of bed for 24 hours. After walking a few steps back and forth, he felt steady again. 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 Both his hypertension and diabetes are under good control, he has had them for decades and they are the 2 biggest risk factors for a small blood vessel disease. He is an aspirin failure and so I recommend after his CAT scan, which is scheduled for 24 hours after the TPA was infused, to switch him to Plavix. His lipid profile is under excellent control with a total cholesterol of 101 and a LDL of 46 and so I would just continue his atorvastatin at the current dose. His hemoglobin A1c is also excellent at 6.3. He also had an echocardiogram, which was unremarkable. CT angiogram of neck and brain did not reveal any large vessel disease. I have explained my impression to Mr. Bello and his and answered their questions. I have discussed the case with Dr. Nair. He should follow up with Dr. Casiano in the next couple of weeks and I would like to see him in my office in a few weeks as well just to make sure there are no loose ends and other vascular risk factors remain under control. [id number]/CPS #: [id number] MTDJuliana
[2017-04-26] MEDS: Levothyroxine TAB* 25 MCG TAB PO SCH (06:05)
[2017-04-26] MEDS: buPROPion SR TAB.SR* 100 MG PO SCH (07:59)
[2017-04-26] MEDS: lamoTRIgine TAB(*) 100 MG PO SCH (07:59)
[2017-04-26] MEDS: Atorvastatin* 10 MG TAB PO SCH (07:59)
[2017-04-26] MEDS: Lithium Carbonate TAB* 300 MG PO SCH (08:00)
[2017-04-26] MEDS: Insulin LISPRO* 1 UNITS UNIT SUBCUT SCH (08:12)
[2017-04-26] MEDS: traZODone TAB* 50 MG TAB PO SCH (08:15)
[2017-04-26] MEDS ORDERED: Clopidogrel TAB* 75 MG PO SCH (09:00)
[2017-04-26 09:23] VITALS: BP 153/76
--- NOTE | 2017-04-27 01:12 | DS ---
CC: Dr. Casiano; Dr. Krishnan* DISCHARGE SUMMARY: DATE OF ADMISSION: 04/24/17 DATE OF DISCHARGE: 04/26/17 PRIMARY CARE PROVIDER: Dr. Casiano. DISCHARGE DIAGNOSIS: Ischemic cerebrovascular accident versus transient ischemic attack likely originating from the brainstem. SECONDARY DIAGNOSES: 1. Hypertension. 2. Hyperlipidemia. 3. Depression. 4. Diabetes. 5. Bipolar disorder. 6. Hypothyroidism. MEDICATIONS AT DISCHARGE: Basically unchanged apart from replacement of aspirin with Plavix and those include: 1. Plavix 75 mg daily. 2. Accupril 40 mg b.i.d. 3. Levothyroxine 25 mcg daily. 4. Metformin 500 mg b.i.d. 5. Lamictal 200 mg daily. 6. Metoprolol succinate 25 mg daily. 7. Glyburide 2.5 mg b.i.d. 8. Simvastatin 20 mg daily. 9. [place] 600 mg in p.m. and 300 mg in a.m. 10. Trazodone 50 mg daily. 11. Wellbutrin XR 200 mg b.i.d. 12. Viagra 25 mg on p.r.n. basis. LABORATORY DATA: Studied performed during the hospital stay included: 04/25/17, white blood cell count of 8.3, hemoglobin of 13.1, hematocrit of 38, MCV of 96, and platelets of 203. Sodium was 134, potassium 4.1, chloride 105, carbon dioxide 23, BUN 13, creatinine 0.96. Fasting lipid profile showed a triglycerides of 113, LDL cholesterol of 46, total cholesterol of 101 and HDL of 32. [place] level documented on 04/24/17 was 0.96. Transthoracic echocardiogram obtained on 04/25/17, showed mild concentric LVH with EF of 55% to 60% with no PFO documented by bubble study. Although there was negative contrast present in the right atrium, that could represent flow from IVC or shunt. Brain MRI documented on 04/25/17, impression "no evidence of acute or subacute ischemia. Minimal burden of tiny T2 flare hyperintensities at the cerebral white matter. While nonspecific, the foci most likely attributable to chronic small vessel ischemic changes." CT angiogram head and neck showed no evidence of hemodynamically significant carotid stenosis and no evidence of large vessel intracranial thrombus. CONSULTATIONS DURING THE HOSPITAL STAY: Included Dr. Krsihnan from Neurology. HOSPITALIZATION COURSE: Andre Mudge is a 66-year-old male with history of diabetes, hypertension, hyperlipidemia, who presented to the hospital complaining of diplopia and left-sided leg weakness. The patient was a good candidate for TPA and he was treated with TPA in the emergency department. By the time of the hospitalist evaluation for admission, the patient's neuro deficits were already resolved. The patient was admitted to the hospital and placed in intensive care unit on neuro checks. He continued to show no further neuro deficits. He was evaluated by Dr. Krishnan and noted that he was on aspirin, which was switched to Plavix by the time of discharge. His lipid profile was unremarkable with good LDL and his Lipitor was not changed. His hemoglobin A1c was noted to be 6.3, indicating good glucose control at home. The patient is going to be discharged home, with recommendation to follow up with his primary care provider in 4 to 7 days. PHYSICAL EXAM AT THE TIME OF DISCHARGE: Blood pressure 137/57, heart rate of 46 and regular, respiratory rate 13, oxygen saturation 95% on room air, temperature of 98.8. General: The patient is a very pleasant 66-year-old male who is in no acute distress, alert, awake and oriented x3. HEENT: Head atraumatic, normocephalic. Eyes: Pupils equal, round, and reactive to light and accommodation. Oropharynx clear. Mucosa moist. Neck: Supple. No JVD. No bruits bilaterally. Cardiovascular: Regular rate and rhythm. No murmur. Respiratory: Clear to auscultation bilaterally. Abdomen: Soft, nontender. Bowel sounds present in all 4 quadrants. Extremities: There is no edema. Pulses +2 bilaterally. No clubbing or cyanosis. Neuro evaluation, speech clear. Cranial nerves II through XII grossly intact. Motor strength is 5/5 bilaterally. Please note that this is a short summary of the patient's hospitalization. Please refer to further medical records for details. TIME SPENT: Approximately 40 minutes were spent on preparation of patient's discharge. [id number]/CPS #: [id number]/CPS #: [id number] CHERI
--- NOTE | 2017-04-27 05:45 | DS ---
CC: Dr. Krisnhan; Dr. Casiano DISCHARGE SUMMARY: ADDENDUM: MEDICATIONS: 1. Plavix. 2. Accupril 40 mg b.i.d. 3. Levothyroxine 25 mcg daily. 4. Metformin 500 mg b.i.d. 5. Lamictal 200 mg daily. 6. Metoprolol succinate 25 mg daily. 7. Glyburide 2.5 mg b.i.d. 8. Simvastatin 20 mg daily. 9. Box 600 mg in p.m. and 300 mg in a.m. 10. Trazodone 50 mg daily. 11. Wellbutrin XR 200 mg b.i.d. 12. Viagra 25 mg on p.r.n. basis. LABORATORY DATA: Studied performed during the hospital stay included: 04/25/17, white blood cell count of 8.3, hemoglobin of 13.1, hematocrit of 38, MCV of 96, and platele ts of 203. Sodium was 134, potassium 4.1, chloride 105, carbon dioxide 23, BUN 13, creatinine 0.96. Fasting lip id profile showed a triglycerides of 113, LDL cholesterol of 46, total cholesterol of 101 and HDL of 32. Box level documented on 04/24/17 was 0.96. Transthoracic echocardiogram obtained on 04/25/17, showed mild concentric LVH with EF of 55% to 60% w ith no PFO documented by bubble study. Although there was negative contrast present in the right atr ium, that could represent flow from IVC or shunt. Brain MRI documented on 04/25/17, impression "no evidence of acute or subacute ischemia. Minimal bur den of tiny T2 flare hyperintensities at the cerebral white matter. While nonspecific, the foci most likely attributable to chronic small vessel ischemic changes." CT angiogram head and neck showed no evidence of hemodynamically significant carotid stenosis and no evidence of large vessel intracranial thrombus. CONSULTATIONS DURING THE HOSPITAL STAY: Included Dr. Krishnan from Neurology. HOSPITALIZATION COURSE: Andre Bello is a 66-year-old male with history of diabetes, hypertension, hyperlipidemia, who presented to the hospital complaining of diplopia and left-sided leg weakness. T he patient was a good candidate for TPA and he was treated with TPA in the emergency department. By the time of the hospitalist evaluation for admission, the patient's neuro deficits were already resol silvana. The patient was admitted to the hospital and placed in intensive care unit on neuro checks. He continued to show no further neuro deficits. He was evaluated by Dr. Krishnan and noted that he was on aspirin, which was switched to Plavix by the time of discharge. His lipid profile was unremarkabl e with good LDL and his Lipitor was not changed. His hemoglobin A1c was noted to be 6.3, indicating good glucose control at home. The patient is going to be discharged home, with recommendation to follow up with his primary care pr ovider in 4 to 7 days. PHYSICAL EXAM AT THE TIME OF DISCHARGE: Blood pressure 137/57, heart rate of 46 and regular, respira tory rate 13, oxygen saturation 95% on room air, temperature of 98.8. General: The patient is a brigette y pleasant 66-year-old male who is in no acute distress, alert, awake and oriented x3. HEENT: Head atraumatic, normocephalic. Eyes: Pupils equal, round, and reactive to light and accommodation. Orop harynx clear. Mucosa moist. Neck: Supple. No JVD. No bruits bilaterally. Cardiovascular: Regular rate and rhythm. No murmur. Respiratory: Clear to auscultation bilaterally. Abdomen: Soft, nonte nder. Bowel sounds present in all 4 quadrants. Extremities: There is no edema. Pulses +2 bilateral ly. No clubbing or cyanosis. Neuro evaluation, speech clear. Cranial nerves II through XII grossly intact. Motor strength is 5/5 bilaterally. Please note that this is a short summary of the patient's hospitalization. Please refer to further m edical records for details. TIME SPENT: Approximately 40 minutes were spent on preparation of patient's discharge. [id number]/[facility] #: [id number]
--- NOTE | 2017-05-05 14:11 | ED ---
Ben Townsend Gabriel, scribed for Hood Ace MD on 04/24/17 at 1831 . Neurological HPI - HPI Summary HPI Summary: This patient is a 66 year old M presenting to [facility] accompanied by his with a chief complaint of a sudden onset of blurry vision that began 45 minutes ago. Pt was walking when he began to list to the left then he began having double vision. Patient denies dizziness, light headedness, CHASE, medication changes, speech changes, and numbness or tingling. Pt has DM and has not eaten all day. He has had similar episodes and went to the eye doctor, nothing significant was found. - History of Current Complaint Chief Complaint: EDGeneral Stated Complaint: DOUBLE VISION/TROUBLE WALKING Time Seen by Provider: 04/24/17 18:11 Hx Obtained From: Patient Onset/Duration: Started minutes ago - 45, Still Present Timing: Constant Onset Severity: Moderate Current Severity: Moderate Pain Intensity: 0 Pain Scale Used: 0-10 Numeric Associated Signs and Symptoms: Positive: Unsteady Gait, Visual Changes - Allergy/Home Medications Allergies/Adverse Reactions: Allergies Allergy/AdvReac Type Severity Reaction Status Date / Time No Known Allergies Allergy Verified 06/07/14 14:27 Home Medications: Home Medications [place] Carbonate TAB* 600 mg PO QPM 04/24/17 [History Confirmed 04/24/17] Quinapril (NF) [Accupril (NF)] 40 mg PO BID 04/24/17 [History Confirmed 04/24/17 ] Sildenafil (NF) [Viagra (NF)] 25 mg PO DAILY PRN 04/24/17 [History Confirmed ] PMH/Surg Hx/FS Hx/Imm Hx Endocrine/Hematology History: Reports: Hx Diabetes, Hx Thyroid Disease Cardiovascular History: Reports: Hx Hypertension Infectious Disease History: No Infectious Disease History: Denies: Traveled Outside the [place] in Last 30 Days - Family History Known Family History: Positive: Hypertension - Social History Lives: With Family Alcohol Use: None Substance Use Type: Reports: None Smoking Status (MU): Former Smoker Review of Systems Positive: Other - listing while walking . Negative: Fever, Chills Eyes: Other - double vision Negative: Sore Throat Negative: Chest Pain Negative: Shortness Of Breath, Cough Negative: Abdominal Pain, Vomiting, Nausea Negative: dysuria, hematuria Negative: Myalgia, Edema Negative: Rash Neurological: Negative - dizziness and light headedness. Negative: Headache, Numbness - or tingling , Slurred Speech All Other Systems Reviewed And Are Negative: Yes Physical Exam - Summary Physical Exam Summary: Constitutional: Well-developed, Well-nourished, Alert. (-) Distressed Skin: Warm, Dry HENT: Normocephalic; Atraumatic Eyes: Conjunctiva normal Neck: Musculoskeletal ROM normal neck. (-) JVD, (-) Stridor, (-) Tracheal deviation Cardio: Rhythm regular, rate normal, Heart sounds normal; Intact distal pulses; The pedal pulses are 2+ and symmetric. Radial pulses are 2+ and symmetric. (-) Murmur Pulmonary/Chest wall: Effort normal. (-) Respiratory distress, (-) Wheezes, (-) Rales Abd: Soft. (-) Tenderness, (-) Distension, (-) Guarding, (-) Rebound Musculoskeletal: (-) Edema Lymph: (-) Cervical adenopathy Neuro: Alert, Oriented x3, Strength normal, Cranial nerves II-XII are grossly intact. (-) Dysmetria, (-) Nystagmus, (-) Ataxia by finger to nose testing, (-) Sensory deficit. Slightly diminished sensation on the left. Dysmetria in the left hand Psych: Mood and affect Normal GCS 15 Triage Information Reviewed: Yes Vital Signs On Initial Exam: Initial Vitals Temp Pulse Resp BP Pulse Ox 98.3 F 65 18 157/67 96 04/24/17 18:05 04/24/17 18:05 04/24/17 18:05 04/24/17 18:05 04/24/17 18:05 Vital Signs Reviewed: Yes Diagnostics - Vital Signs Vital Signs Temp Pulse Resp BP Pulse Ox 04/24/17 18:05 98.3 F 65 18 157/67 96 - Laboratory Lab Results: Lab Results 04/24/17 04/24/17 04/24/17 Range/Units 18:13 18:29 18:29 WBC 8.1 (3.5-10.8) 10^3/ul RBC 4.05 (4.0-5.4) 10^6/ul Hgb 13.3 L (14.0-18.0) g/dl Hct 39 L (42-52) % MCV 96 H (80-94) fL MCH 33 H (27-31) pg MCHC 34 (31-36) g/dl RDW 14 (10.5-15) % Plt Count 210 (150-450) 10^3/ul MPV 8 (7.4-10.4) um3 Neut % (Auto) 67.9 (38-83) % Lymph % (Auto) 22.4 L (25-47) % [place] % (Auto) 6.5 (0-7) % Eos % (Auto) 2.1 (0-6) % Baso % (Auto) 1.1 (0-2) % Absolute Neuts (auto) 5.5 (1.5-7.7) 10^3/ul Absolute Lymphs (auto) 1.8 (1.0-4.8) 10^3/ul Absolute Monos (auto) 0.5 (0-0.8) 10^3/ul Absolute Eos (auto) 0.2 (0-0.6) 10^3/ul Absolute Basos (auto) 0.1 (0-0.2) 10^3/ul Absolute Nucleated RBC 0 10^3/ul Nucleated RBC % 0.1 INR (Anticoag Therapy) 0.87 (0.77-1.02) APTT 30.6 (26.0-36.3) seconds Sodium (133-145) mmol/L Potassium (3.5-5.0) mmol/L Chloride (101-111) mmol/L Carbon Dioxide (22-32) mmol/L Anion Gap (2-11) mmol/L BUN (6-24) mg/dL Creatinine (0.67-1.17) mg/dL Est GFR ( Amer) (>60) Est GFR (Non-Af Amer) (>60) BUN/Creatinine Ratio (8-20) Glucose (70-100) mg/dL POC Glucose (mg/dL) 109 H (70-100) mg/dL Lactic Acid (0.5-2.0) mmol/L Calcium (8.6-10.3) mg/dL Total Bilirubin (0.2-1.0) mg/dL AST (13-39) U/L ALT (7-52) U/L Alkaline Phosphatase (34-104) U/L Troponin I (<0.04) ng/mL Total Protein (6.4-8.9) g/dL Albumin (3.2-5.2) g/dL Globulin (2-4) g/dL Albumin/Globulin Ratio (1-3) Triglycerides mg/dL Cholesterol mg/dL LDL Cholesterol mg/dL HDL Cholesterol mg/dL [place] (0.6-1.2) mmol/L Blood Type Antibody Screen 04/24/17 04/24/17 04/24/17 Range/Units 18:29 18:29 18:29 WBC (3.5-10.8) 10^3/ul RBC (4.0-5.4) 10^6/ul Hgb (14.0-18.0) g/dl Hct (42-52) % MCV (80-94) fL MCH (27-31) pg MCHC (31-36) g/dl RDW (10.5-15) % Plt Count (150-450) 10^3/ul MPV (7.4-10.4) um3 Neut % (Auto) (38-83) % Lymph % (Auto) (25-47) % [place]ne % (Auto) (0-7) % Eos % (Auto) (0-6) % Baso % (Auto) (0-2) % Absolute Neuts (auto) (1.5-7.7) 10^3/ul Absolute Lymphs (auto) (1.0-4.8) 10^3/ul Absolute Monos (auto) (0-0.8) 10^3/ul Absolute Eos (auto) (0-0.6) 10^3/ul Absolute Basos (auto) (0-0.2) 10^3/ul Absolute Nucleated RBC 10^3/ul Nucleated RBC % INR (Anticoag Therapy) (0.77-1.02) APTT (26.0-36.3) seconds Sodium 136 (133-145) mmol/L Potassium 4.2 (3.5-5.0) mmol/L Chloride 105 (101-111) mmol/L Carbon Dioxide 25 (22-32) mmol/L Anion Gap 6 (2-11) mmol/L BUN 17 (6-24) mg/dL Creatinine 1.10 (0.67-1.17) mg/dL Est GFR ( Amer) 85.6 (>60) Est GFR (Non-Af Amer) 66.6 (>60) BUN/Creatinine Ratio 15.5 (8-20) Glucose 98 (70-100) mg/dL POC Glucose (mg/dL) (70-100) mg/dL Lactic Acid 1.8 (0.5-2.0) mmol/L Calcium 9.9 (8.6-10.3) mg/dL Total Bilirubin 0.70 (0.2-1.0) mg/dL AST 14 (13-39) U/L ALT 11 (7-52) U/L Alkaline Phosphatase 47 (34-104) U/L Troponin I 0.01 (<0.04) ng/mL Total Protein 7.0 (6.4-8.9) g/dL Albumin 4.3 (3.2-5.2) g/dL Globulin 2.7 (2-4) g/dL Albumin/Globulin Ratio 1.6 (1-3) Triglycerides 62 mg/dL Cholesterol 100 mg/dL LDL Cholesterol 49 mg/dL HDL Cholesterol 38.9 mg/dL [place] 0.96 (0.6-1.2) mmol/L Blood Type A Positive Antibody Screen Negative Result Diagrams: 04/25/17 06:26 04/25/17 06:26 Lab Statement: Any lab studies that have been ordered have been reviewed, and results considered in the medical decision making process. - Radiology CXR Radiology Interpretation Completed By: Radiologist - NO EVIDENCE FOR ACUTE DISEASE. ED physician has reviewed this radiology report. - CT CT Brain CT Interpretation Completed By: Radiologist - NO EVIDENCE FOR GROSS ACUTE INFARCT, MASS EFFECT OR HEMORRHAGE. ED physician has reviewed this radiology report. CTA head CT Interpretation Completed By: Radiologist - 1. NO EVIDENCE FOR HEMODYNAMICALLY SIGNIFICANT CAROTID STENOSIS. 2. NO EVIDENCE FOR LARGE VESSEL INTRACRANIAL THROMBUS. Dr. 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 Facial Paresis-Pt to Smile & Close Eyes or Grimace Symmetry: Normal/Symmetrical Motor Function - Right Arm: No Drift-Holds 10 Seconds Motor Function - Left Arm: No Drift-Holds 10 Seconds Motor Function - Right Leg: No Drift-Holds 10 Seconds Motor Function - Left Leg: No Drift-Holds 10 Seconds Limb Ataxia-Must be out of Proportion to Weakness Present: Present in One Limb Sensory (Use Pinprick to Test Arms/Legs/Trunk/Face): Pinprick Less on Affected Best Language (Describe Picture, Name Items): No Aphasia Dysarthria (Read Several Words): Normal Extinction and Inattention: No Abnormality Total Score: 3 Re-Evaluation - Re-Evaluation First Eval Re-Evaluation Time: 19:04 Change: Unchanged Comment: I assisted tele neurologist with the exam. Second Eval Re-Evaluation Time: 19:23 Change: Unchanged Comment: The neurologist canvas cutter machine recommend TPA. Third Eval Re-Evaluation Time: 21:20 Change: Improved Comment: The patients diplopia has resolved Course/Dx - Course Assessment/Plan: This patient is a 66 year old M presenting to [facility] accompanied by his with a chief complaint of a sudden onset of blurry vision that began 45 minutes ago. Pt was walking when he began to list to the left then he began having double vision. Patient denies dizziness, light headedness, CHASE, medication changes, speech changes, and numbness or tingling. Pt has DM and has not eaten all day. He has had similar episodes and went to the eye doctor, nothing significant was found. Opal booker called at 1824. An EKG reveals sinus bradycardia. CT Brain reveals, per radiologist, NO EVIDENCE FOR GROSS ACUTE INFARCT, MASS EFFECT OR HEMORRHAGE. CXR reveals, NO EVIDENCE FOR ACUTE DISEASE. CTA head reveals, 1. NO EVIDENCE FOR HEMODYNAMICALLY SIGNIFICANT CAROTID STENOSIS. 2. NO EVIDENCE FOR LARGE VESSEL INTRACRANIAL THROMBUS. TPA screening was negative he was also aware of the remote risk of bleeding. The patient was given TPA in the ED course. Dx CVA. Test results with no significant abnormalities. We discussed patient care with Dr. Davison and they recommended giving TPA. We discussed patient care with Dr. St and he has accepted the patient for admission but would like a CTA. Patient will be admitted. The patient is agreeable with this plan. - Diagnoses Provider Diagnoses: CVA (cerebral vascular accident) During the Visit The Following Alert/Code Occurred: Code Booker - at 1824 - Critical Care Time Critical Care Time: 75-104 min - 90 Discharge - Sign-Out/Discharge Documenting (check all that apply): Discharge - ICU - Discharge Plan Condition: Good Disposition: ADMITTED TO [facility] - Billing Disposition and Condition Condition: FAIR [place] [facility] [place] Consult: We discussed patient care with Dr. Davison and they recommended giving TPA. We discussed patient care with Dr. St and he has accepted the patient for admission but would like a CTA. The documentation as recorded by the Ben gage Gabriel accurately reflects the service I personally performed and the decisions made by , Hood Ace MD.
== END 2017-04-26 10:09 | disposition home or self-care (01) | DRG 62 ==
LOC: ED 18:02 → ICU 21:35
PROVIDERS: ADMIT Hospitalist; ATTEND Internal Medicine
DX: G45.9 Transient cerebral ischemic attack, unspecified (principal); F31.89 Other bipolar disorder; E03.9 Hypothyroidism, unspecified; E11.9 Type 2 diabetes mellitus without complications; E78.5 Hyperlipidemia, unspecified; R40.2412 Glasgow coma scale score 13-15, at arrival to emergency department; R29.703 NIHSS score 3; I10 Essential (primary) hypertension; R00.1 Bradycardia, unspecified; Z83.3 Family history of diabetes mellitus; Z79.02 Long term (current) use of antithrombotics/antiplatelets; Z79.84 Long term (current) use of oral hypoglycemic drugs; Z82.49 Family history of ischemic heart disease and other diseases of the circulatory system; Z87.891 Personal history of nicotine dependence
CPT/HCPCS: 36415; 70450; 70496; 70498; 70551; 71045; 80048; 80053; 80061; 80178; 81003; 81015; 83036; 83605; 84484; 85025; 85610; 85730; 86850; 86900; 86901; 87086; 87641; 93005; 93306; 94760; 99285; A9270-GY; J2997; Q9967

== ENCOUNTER 2017-12-23 08:14 | Emergency (ER) | payer MEDICARE, BC ==
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
[2017-12-23 10:21] VITALS: BP 143/70
== END 2017-12-23 10:21 | disposition home or self-care (01) ==
LOC: UCEAST 08:14
DX: S20.211A Contusion of right front wall of thorax, initial encounter (principal); I10 Essential (primary) hypertension; R07.81 Pleurodynia; W01.198A Fall on same level from slipping, tripping and stumbling with subsequent striking against other object, initial encounter; Y92.9 Unspecified place or not applicable
CPT/HCPCS: 99211; G0463

== ENCOUNTER → 2018-03-05 15:52 | Emergency (ER) | payer MEDICARE, BC ==
--- OUTSIDE RECORDS SUMMARY | 2018-03-05 16:13 | XMS REPORT | Continuity of Care Document ---
:1950 External Reference #:[id number] Author Name Mark Juarez DO Address [address] [place] [address] Care Team Providers Name Role Phone Colt Casiano MD Care Team Information Inspector Dials Unavailable Colt Casiano MD Primary Care Physician Unavailable Payers Type Date Identification Numbers Payment Provider Subscriber Policy Number: [id number] Medicare Andre Gallardo PayID: [id number] [facility] [address] [place] [address] Policy Number: [id number] [facility] Myrl Andre Gallardo PayID: [id number] [address] [place] [address] Advance Directives Description No Information Available Problems Date Description Provider Status Onset: 12/18/2014 Bipolar I disorder Colt Casiano MD Active Family History Description No Information Available Social History Type Date Description Comments Sex Unknown Tobacco Use Start: Unknown Patient has never smoked Smoking Status Reviewed: 02/18/18 Patient has never smoked Allergies, Adverse Reactions, Alerts Date Description Reaction Status Severity Comments 01/30/2014 Sumatriptan nausea/leg pain Active Medications Medication Date Status Form Strength Qnty SIG Indications Ordering Provider Plavix 05/08/ Active Tablets 75mg 90tab , 2017 rickey Harrison MD Metoprolol 10/26/ Active Tablets ER 25mg 90tab Midura, Succinate ER 2017 24HR rickey Harrison MD Glyburide 09/28/ Active Tablets 2.5mg 180ta 1 bid 2014 landon Harrison MD Metformin HCL 09/28/ Active Tablets 500mg 180ta take one 2014 bs tablet by ayde Herron twice MD a day as directed Metformin HCL 09/28/ Active Tablets 500mg 180ta 2014 bs Colt Harrison MD Bupropion HCL 01/05/ Active Tablets ER 100mg 360ta Take Two Midura, ER (SR) 2013 12HR bs Tablets By Colt Harrison Mouth Twice MD A Day Bupropion HCL 01/05/ Active Tablets ER 100mg 360ta Midura, ER (SR) 2013 12HR bs Colt Harrison MD Viagra 03/04/ Active Tablets 100mg 6tabs Take 02/13 To 2013 1 Tablet By Colt Harrison Mouth as MD Needed 30 To 60 Minutes Before Hardy Quinapril HCL 01/23/ Active Tablets 40mg 180ta , 2011 bs Colt Harrison MD Levothyroxine 12/03/ Active Tablets 25mcg 90tab Take One , 2011 s Tablet By Colt Harrison Mouth Once MD Daily Atenolol 03/24/ Active Tablets 25mg 90tab Take One , 2008 s Tablet By Colt Harrison Mouth Every MD Day Trazodone HCL 07/02/ Active Tablets 50mg 30tab Take One , 2007 s Tablet By Colt Harrison Mouth At MD Bedtime Trazodone HCL 07/02/ Active Tablets 50mg 30tab , 2007 s Colt Harrison MD Wakeman 12/27/ Active Capsules 300mg 270ca Take One , 2005 ps Capsule By Colt Harrison Mouth Every MD Morning And Take Two Capsules By Mouth Every Evening Lamictal 12/27/ Active Tablets 200mg 90tab Take One Midura, 2005 s Tablet By Colt Harrison Mouth Once Daily Zocor 06/04/ Active Tablets 20mg 90tab Take One , 2002 s Tablet By Colt Harrison Mouth At MD Bedtime Zocor 06/04/ Active Tablets 20mg 90tab , 2002 s Colt Harrison MD Colyte With 04/01/ Hx Solution 240gm 4000m by mouth as Rafael Rodriguez Flavor Packs 2015 - Rec l directed Gil, 2018 Glyburide 09/28/ Hx Tablets 2.5mg 180ta , 2014 - bs Colt Harrison, 02/18/ 2018 Cialis 01/30/ Hx Tablets 5mg 30tab 1 by mouth 2013 - s every day as Colt Harrison, 02/18/ salvatore DUARTE 2019 Viagra 03/04/ Hx Tablets 100mg 6tabs [facility], 2013 - Colt Harrison, 2018 Quinapril HCL 01/23/ Hx Tablets 40mg 180ta Take One [facility], 2011 - bs Tablet By Colt Harrison, 02/18/ Mouth Twice MD 2018 A Day Levothyroxine 12/03/ Hx Tablets 25mcg 90tab Midura, Sodium 2011 - s Colt Harrison, 2018 Lamictal 12/27/ Hx Tablets 200mg 90tab Midura, 2005 - s Colt Harrison, 2018 Wakeman 12/27/ Hx Capsules 300mg 270ca Midura, Carbonate 2005 - ps Colt Harrison, 2018 Aspirin 02/17/ Hx Chewtabs 81mg 1 Tabs qd Unknown 2002 - 2018 Immunizations Description No Information Available Vital Signs Date Vital Result Comment 02/18/2018 1:53pm Height 68 inches 5'8" Weight 160.00 lb BP Systolic 168 mmHg BP Diastolic 90 mmHg Heart Rate 64 /min BMI (Body Mass Index) 24.3 kg/m2 04/01/2015 9:20am Height 68 inches 5'8" Weight 175.00 lb BMI (Body Mass Index) 26.6 kg/m2 Results Test Date Facility Test Result H/L Range Note Laboratory test finding 01/18/2018 N2N/CCD Import Free T3 <pending> 2.0- 4.9 Free T4 <pending> 0.75-1.54 TSH <pending> 0.5-5.0 Laboratory test finding 01/18/2018 N2N/CCD Import Lamotrigine <pending> 1 Wakeman (Eskalith(R)), Serum 1.2 mmol/L 0.6-1.2 2 Laboratory test 01/18/2018 N2N/CCD Import Hemoglobin A1c 6.0% % High 4.1- 5.7 finding (Fma) Laboratory test 09/21/2017 N2N/CCD Import BUN 17 mg/dL 6-26 3 finding BUN/Creat Ratio 17.0 CALC 8.0-36.0 C-Reactive Protein, Quant <0.3 mg/L 0.0-4.9 Calcium 9.9 mg/dL 8.6-10.2 Carbon Dioxide 27 mEq/L 21-32 Chloride 108 mEq/L 94-112 Creatinine 1.0 mg/dL 0.6-1.4 Folate (Folic Acid), Serum 14.2 ng/mL >3.0 4 Free T3 1.73 pg/mL Low 2.00-4.90 5 Free T4 0.99 ng/dL 0.75-1.54 GFR >60 ml/min/1.73m^ >=60 GFR Non- >60 ml/min/1.73m^ >=60 Glucose 109 mg/dL High 70-105 Potassium 4.5 mEq/L 3.6-5.5 RPR Non Reactive Non Reactive Sodium 139 mEq/L 134-149 TSH 4.13 mIU/L 0.50-6.00 Vitamin B-12 681 pg/mL 230-1050 Lyme, Western Blot, Serum 09/21/2017 N2N/CCD Import IgG P18 Ab. Absent IgG P23 Ab. Absent IgG P28 Ab. Absent IgG P30 Ab. Absent IgG P39 Ab. Absent IgG P41 Ab. Absent IgG P45 Ab. Absent IgG P58 Ab. Absent IgG P66 Ab. Absent IgG P93 Ab. Absent IgM P23 Ab. Absent IgM P39 Ab. Absent IgM P41 Ab. Absent Lyme IgG WB Interp. Negative 6 Lyme IgM WB Interp. Negative 7 Lipid Profile 07/17/2017 N2N/CCD Import Cholesterol 138 mg/dL 120-200 HDL Cholesterol 46 mg/dL 30-70 HDL Risk Factor 3.0 CALC 0.0-4.4 LDL (Calculated) 60 CALC 0-129 Triglycerides 159 mg/dL 30-200 VLDL Cholesterol 32 mg/dL 0-50 Laboratory test finding 07/17/2017 N2N/CCD Import PSA 2.9 ng/mL 0.0-4.0 Comprehensive Metabolic 07/17/2017 N2N/CCD Import A/G Ratio 1.9 CALC 0.6 -2.3 Prof Albumin 4.7 g/dL 3.8-5.5 Alk. Phosphatase 58 U/L 22-95 Alt (SGPT) 27 U/L 7-35 Ast (Sgot) 19 U/L 5-34 BUN 16 mg/dL 6-26 BUN/Creat Ratio 14.5 CALC 8.0-36.0 Calcium 10.6 mg/dL High 8.6-10.2 8 Carbon Dioxide 22 mEq/L 21-32 Chloride 105 mEq/L 94-112 Creatinine 1.1 mg/dL 0.6-1.4 GFR >60 ml/min/1.73m^ >=60 GFR Non- >60 ml/min/1.73m^ >=60 Globulin 2.5 g/dL 2.0-4.8 Glucose 81 mg/dL 70-105 Potassium 4.4 mEq/L 3.6-5.5 Sodium 140 mEq/L 134-149 Total Bilirubin 0.4 mg/dL 0.2-1.3 Total Protein 7.2 g/dL 6.4-8.3 Comp Metabolic Panel 03/16/2017 N2N/CCD Import Albumin 3.8 g/dL 3.2-5.2 Albumin/Globulin Ratio 1.3 1 1-3 Alkaline Phosphatase 68 U/L 34-104 Alt 6 U/L Low 7-52 Anion Gap 5 mmol/L 2-11 Ast 11 U/L Low 13-39 BUN/Creatinine Ratio 17.2 1 8-20 Blood Urea Nitrogen 15 mg/dL 6-24 Calcium 9.2 mg/dL 8.6-10.3 Chloride 103 mmol/L 101-111 Co2 Carbon Dioxide 25 mmol/L 22-32 Creatinine 0.87 mg/dL 0.67-1.17 Egfr 112.2 1 >60 9 Egfr Non- 87.3 1 >60 Globulin 3.0 g/dL 2-4 Glucose 200 mg/dL High 70-100 Potassium 3.8 mmol/L 3.5-5.0 Sodium 133 mmol/L 133-145 Total Bilirubin 0.40 mg/dL 0.2-1.0 Total Protein 6.8 g/dL 6.4-8.9 CBC Auto Diff 03/16/2017 N2N/CCD Import Abs Basophils 0.1 10^3/uL 0-0.2 Abs Eosinophils 0.3 10^3/uL 0-0.6 Abs Lymphocytes 1.9 10^3/uL 1.0-4.8 Abs Monocytes 1.0 10^3/uL High 0-0.8 Abs Neutrophils 8.7 10^3/uL High 1.5-7.7 Abs Nucleated RBC 0 10^3/uL Basophil % 0.6 % 0-2 Eosinophil % 2.6 % 0-6 Granulocyte % 72.4 % 38-83 Hematocrit 38 % Low 42-52 Hemoglobin 12.8 g/dL Low 14.0-18.0 Lymphocyte % 15.9 % Low 25-47 Mean Corpuscular HGB Conc 34 g/dL 31-36 Mean Corpuscular Hemoglobin 32 pg High 27-31 Mean Corpuscular Volume 96 fL High 80-94 Mean Platelet Volume 8 um3 7.4-10.4 Monocyte % 8.5 % 1-9 Nucleated Red Blood Cells % 0 1 Platelet Count 245 10^3/uL 150-450 Red Blood Count 3.99 10^6/uL Low 4.0-5.4 Red Cell Distribution Width 13 % 10.5-15 White Blood Count 12.0 10^3/uL High 3.5-10.8 Laboratory test 03/16/2017 N2N/CCD Import Blood Culture See Result Below 10 finding C Reactive Protein 48.15 mg/L High < 5.00 11 Lactic Acid 0.8 mmol/L 0.5-2.0 12 Laboratory test 05/14/2015 [facility] Surgical SEE RESULT 13 finding Interface Order BELOW Laboratory test 12/18/2014 N2N/CCD Import Hemoglobin A1c 5.7 % 4.1-5.7 finding (Fma/CMC,CX) Laboratory test 06/02/2014 N2N/CCD Import .Thyroxine T4 1.15 ng/dL 0.82- 1. 14 finding Free Direct 77 Lamotrigine, Serum 2.7 ug/mL 2.0-20.0 Wakeman 1.10 mmol/L 0.60-1.20 TSH (Thyrotropin) 1.320 uIU/ml 0.350-5.500 Comprehensive Metabolic 06/02/2014 N2N/CCD Import Albumin 4.5 g/dL 3.5- 4.7 Alkaline Phosphatase 50 U/L 10-118 BUN 21 mg/dL 5-21 Bilirubin, Total 0.70 mg/dL 0.30-1.20 Calcium 9.7 mg/dL 8.4-10.4 Carbon Dioxide 29 mmol/L 20-32 Chloride 108 mmol/L 98-110 Creatinine, Serum 1.01 mg/dL 0.60-1.30 Glucose 54 mg/dL Low 70-100 Potassium 4.4 mmol/L 3.5-5.3 Protein, Total 6.9 g/dL 6.4-8.3 SGPT (Alt) 22 U/L 7-50 Sgot (Ast) 21 U/L 3-40 Sodium 139 mmol/L 136-146 Egfr (Calculated) 06/02/2014 N2N/CCD Import Egfr 78 Egfr, -Andorran 90 15 Estimated GFR (Calculated) Hemoglobin A1c 06/02/2014 N2N/CCD Import Estimated Avg Glucose 119.8 mg/dL 16 Hemoglobin A1c 5.8 % Lipid Panel 06/02/2014 N2N/CCD Import Chol/HDL Cholesterol 2.9 Cholesterol, Total 114 mg/dL <200 HDL Cholesterol 39 mg/dL Low 40-60 LDL Cholesterol, Calc. 56 mg/dL 17 LDL/HDL Cholesterol 1.4 Triglycerides 93 mg/dL <150 Laboratory test 09/15/2013 N2N/CCD Import C-Reactive Protein 0.3 mg/L 0.0-5.0 18 finding Estimated Avg Glucose 134.1 mg/dL 19 Hemoglobin A1c 6.3 % Rheumatoid Arth Factor 7.6 IU/mL 0.0-13.9 Sedimentation Rate 4 MM/HR 0-15 Laboratory test 03/04/2013 N2N/CCD Import Estimated Avg 137.0 mg/dL 20 , 21 finding Glucose Hemoglobin A1c 6.4 % Lamotrigine, Serum 4.1 ug/mL 2.0-20.0 Wakeman 0.50 mmol/L Low 0.60-1.20 PSA, Total 2.00 ng/mL 0.00-4.00 T-4 Free 1.2 ng/dL 0.8-1.8 TSH (Thyrotropin) 3.030 uIU/ml 0.350-5.500 CBC 03/04/2013 N2N/CCD Import Basophil Absolute 0.0 x10E3/uL 0.0-0.2 Basophils 0.5 % 0.0-2.0 Eosinophil Absolute 0.2 x10E3/uL 0.0-0.5 Eosinophils 2.1 % 0.0-6.0 Hematocrit 41.6 % 39.0-50.0 Hemoglobin 14.2 g/dL 13.0-17.0 Lymphocytes 27.1 % 15.0-45.0 Lymphocytes Absolute 2.1 x10E3/uL 1.0-3.4 MCH 32.9 pg 27.5-33.5 MCHC 34.1 g/dL 32.0-36.0 MCV 96.5 fl 82.0-98.0 MPV 11.1 fl 8.6-12.6 Monocyte Absolute 0.6 x10E3/uL 0.2-1.0 Monocytes 8.4 % 2.0-13.0 Neutrophil Absolute 4.8 x10E3/uL 1.4-7.0 Platelet Count 211 x10E3/uL 130-400 RBC 4.31 x10E6/uL Low 4.70-6.20 RDW 12.5 % 11.5-14.5 Segmented Neutrophils 61.9 % 44.0-74.0 WBC 7.7 x10E3/uL 4.3-10.9 Comprehensive Metabolic 03/04/2013 N2N/CCD Import Albumin 4.8 g/dL High 3.5-4.7 Alkaline Phosphatase 56 U/L 10-118 BUN 18 mg/dL 5-21 Bilirubin, Total 0.80 mg/dL 0.30-1.20 Calcium 9.5 mg/dL 8.4-10.4 Carbon Dioxide 28 mmol/L 20-32 Chloride 105 mmol/L 98-110 Creatinine, Serum 1.15 mg/dL 0.60-1.30 Glucose 99 mg/dL 70-100 Potassium 4.5 mmol/L 3.5-5.3 Protein, Total 7.3 g/dL 6.4-8.3 SGPT (Alt) 21 U/L 7-50 Sgot (Ast) 22 U/L 3-40 Sodium 138 mmol/L 136-146 Egfr (Calculated) 03/04/2013 N2N/CCD Import Egfr >60 Egfr, -Andorran >60 22 Estimated GFR (Calculated) Lipid Panel 03/04/2013 N2N/CCD Import Chol/HDL Cholesterol 3.1 Cholesterol, Total 131 mg/dL <200 HDL Cholesterol 42 mg/dL 40-60 LDL Cholesterol, Calc. 68 mg/dL 23 LDL/HDL Cholesterol 1.6 Triglycerides 103 mg/dL <150 1 2 serum pour offs from red top tubes 2 Detection Limit=0.1 <0.1 indicates None Detected 3 2 sst 4 A serum folate concentration of less than 3.1 ng/mL is considered to represent clinical deficiency. 5 RESULTS VERIFIED BY REPEAT ANALYSIS 6 Positive: 5 of the following Borrelia-specific bands: 18,23,28,30,39,41,45,58, 66, and 93. Negative: No bands or banding patterns which do not meet positive criteria. 7 Note: An equivocal or positive EIA result followed by a negative Western Blot result is considered NEGATIVE. An equivocal or positive EIA result followed by a positive Western Blot is considered POSITIVE by the CDC. Positive: 2 of the following bands: 23,39 or 41 Negative: No bands or banding patterns which do not meet positive criteria. Criteria for positivity are those recommended by CDC/ASTPHLD. p23=Osp C, m88=ncitkzedn Note: Sera from individuals with the following may cross react in the Lyme Western Blot assays: other spirochetal diseases (periodontal disease, leptospirosis, relapsing fever, yaws, and pinta); connective autoimmune (Rheumatoid Arthritis and Systemic Lupus Erythematosus and also individuals with Antinuclear Antibody); other infections ([place] Spotted Fever; Rui-Patricio Virus, and Cytomegalovirus). 8 RESULTS VERIFIED BY REPEAT ANALYSIS 9 Because ethnic data is not always readily available, this report includes an eGFR for both -Americans and non- Americans. The National Kidney Disease Education Program (NKDEP) does not endorse the use of the MDRD equation for patients that are not between the ages of 18 and 70, are , have extremes of body size, muscle mass, or nutritional status, or are non- or non-. According to the National Kidney Foundation, irrespective of diagnosis, the stage of the disease is based on the level of kidney function: Stage Description GFR(mL/min/1.73 m(2)) 1 Kidney damage with normal or decreased GFR 90 2 Kidney damage with mild decrease in GFR 60-89 3 Moderate decrease in GFR 30-59 4 Severe decrease in GFR 15-29 5 Kidney failure <15 (or dialysis) 10 SEE RESULT BELOW Name: ANDRE GALLARDO : [address]: Mariusz Wheat MD Acct: [id number] Unit: [id number] AGE: 66 Location: ED Re03/16/17 SEX: M Status: DEP ER SPEC: [id number] BEATRIZ: 03/16/[address] [facility] [address]: Mariusz Wheat MD REQ: [id number] RECD: 03/16/17 STATUS: RES ROQUE DR: Colt Casiano MD _ SOURCE: BLOOD,VENO SPDESC: ORDERED: Blood Cult Procedure Result Reported Site Aerobic Culture Bottle Preliminary 03/17/17922 ML No Growth Day Anaerobic Culture Bottle Preliminary 03/17/17920 ML No Growth Day 1 * ML - MAIN LAB ([facility]) . END OF REPORT * ML=Testing performed at Main Lab DEPARTMENT OF PATHOLOGY, [address] [place] [address] Andreas Arias M.D. Director [facility] # [id number] 11 Acute inflammation: >10.00 12 [facility] Severe Sepsis and Septic Shock Management Bundle Measure requires all lactic acids initially measuring >2.0 mmol/L be repeated. 13 SEE RESULT BELOW Name: ANDRE GALLARDO : [address]: Rafael Cordero MD Acct: [id number] Unit: [id number] AGE: 64 Location: ENDO Re05/14/15 SEX: M Status: REG REF SPEC: [id number] BEATRIZ: 05/14/15- SUBM DR: Rafael Cordero MD REQ: [id number] RECD: 05/14/15-1234 STATUS: JB NEVAREZ DR: Colt Casiano MD _ ORDERED: LEVEL IV FINAL DIAGNOSIS Colon, sigmoid, biopsy: -- Hyperplastic polyp. CLINICAL HISTORY Usual bowel habit - softener every other day. Past surgical history - inguinal hernia left. POST-OPERATIVE DIAGNOSIS Colonoscopy to mid right easily, long to cecum: prep fair - seeds. Conclusions/Plan: Diverticulosis, anatomic challenge, sigmoid nodule. GROSS DESCRIPTION The specimen is received in formalin labeled, Sigmoid Nodule, and consists of a 0.6 x 0.4 x 0.2 cm spring-pink irregular to polypoid soft tissue fragment which is entirely submitted in one cassette. Signed (signature on file) Jannie Suggs MD 05/28 1301 END OF REPORT * ML=Testing performed at Main Lab DEPARTMENT OF PATHOLOGY, [address] [place] [address] Andreas Arias M.D. Director [facility] # [id number] SEE RESULT BELOW Name: ANDRE AGLLARDO : [address]: Rafael Cordero MD Acct: [id number] Unit: [id number] AGE: 64 Location: ENDO Re05/14/15 SEX: M Status: REG REF SPEC: [id number] BEATRIZ: 05/14/15- [facility] DR: Rafael Cordero MD REQ: [id number] RECD: 05/14/15-3394 STATUS: JB NEVAREZ DR: Colt Casiano MD _ ORDERED: LEVEL IV FINAL DIAGNOSIS Colon, sigmoid, biopsy: -- Hyperplastic polyp. CLINICAL HISTORY Usual bowel habit - softener every other day. Past surgical history - inguinal hernia left. POST-OPERATIVE DIAGNOSIS Colonoscopy to mid right easily, long to cecum: prep fair - seeds. Conclusions/Plan: Diverticulosis, anatomic challenge, sigmoid nodule. GROSS DESCRIPTION The specimen is received in formalin labeled, Sigmoid Nodule, and consists of a 0.6 x 0.4 x 0.2 cm spring-pink irregular to polypoid soft tissue fragment which is entirely submitted in one cassette. Signed (signature on file) Jannie Suggs MD 05/28 1301 END OF REPORT * ML=Testing performed at Main Lab DEPARTMENT OF PATHOLOGY, [address] [place] [address] Andreas Arias M.D. Director [facility] # [id number] 14 2 pour off tubes with serum; 2 sst; 1 purple top 15 >59 mL/min/1.73m2 16 HGBA1C (%) GLUCOSE CONTROL <6 NORMAL >=6.5 SUGGESTIVE OF DIABETES 17 CHOL/HDL Risk Ratio Levels MALE FEMALE 1/2 X Average 3.4 3.3 Average 5.0 4.4 2 X Average 9.5 7.0 3 X Average 24.0 11.0 18 2 PURPLE; 1 SST; 1 YELLOW TOP 19 HGBA1C (%) GLUCOSE CONTROL <6 NORMAL >=6.5 SUGGESTIVE OF DIABETES 20 FASTING; 2 POURED OFF SERUM FROM RTT; 1 LAV; 2 SSTS 21 HGBA1C (%) GLUCOSE CONTROL <6 NORMAL >=6.5 SUGGESTIVE OF DIABETES 22 >59 mL/min/1.73m2 23 CHOL/HDL Risk Ratio Levels MALE FEMALE 1/2 X Average 3.4 3.3 Average 5.0 4.4 2 X Average 9.5 7.0 3 X Average 24.0 11.0 Procedures Date Code Description Status 05/14/2015 44298 Colonoscopy W/ Snare RM Of Polyp/Tumor/Lesion Completed 02/16/2005 56969 Colonoscopy Completed Encounters Description No Information Available Plan of Treatment Future Appointment(s):04/01/2018 1:00 pm - Mark Juarez DO at [facility]02/18/2018 - Mark Juarez [id number] Mixed irritable bowel syndromeNew Xrays:X-Ray, Abdomen Supine, Ordered: K59.00 Constipation, [id number] Gastro-esophageal reflux disease without esophagitis
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
[2018-03-05 17:42] VITALS: BP 103/51
== END | disposition home or self-care (01) ==
LOC: ED 15:52
DX: E11.649 Type 2 diabetes mellitus with hypoglycemia without coma (principal); Z79.84 Long term (current) use of oral hypoglycemic drugs; Z87.891 Personal history of nicotine dependence
CPT/HCPCS: 99282

== ENCOUNTER 2018-08-21 09:56 | Day surgery (SDC) | payer MEDICARE, BC ==
[~2018-08-21 09:56] MED LIST: Acetaminophen TAB* 325 MG PO PRN; Buffered Lidocaine 1% SYRIN* 1 ML/SYRINGE INTRADERM ONE
[2018-08-21] MEDS ORDERED: Midazolam* 1 MG/ML 5 ML VIAL (5 MG) ONE (11:46)
[2018-08-21] MEDS ORDERED: Neomycin/Polymy/Dex OPTH.SUSP* MAXITROL 0.1% 5 ML ONE (12:25)
[2018-08-21] MEDS ORDERED: Ketorolac 0.5% OPHTH (NF) 0.5 % 5 ML BTL ONE (12:25)
[2018-08-21] MEDS ORDERED: acetaZOLAMIDE TAB* 250 MG ONE (12:25)
[2018-08-21] MEDS ORDERED: Lidocaine 2% w/ EPI 1:200,000* 20 ML VIAL ONE (12:25)
[2018-08-21] MEDS ORDERED: Povidone Iodine 5% OPTH* 30 ML BTL ONE (12:25)
[2018-08-21] MEDS ORDERED: Cyclopentolate 1% OPTH.SOL* 2 ML BTL ONE (12:25)
[2018-08-21] MEDS ORDERED: Lidocaine 1% MPF ** 5 ML VIAL ONE (12:25)
[2018-08-21] MEDS ORDERED: Phenylephrine OPHTH SOL 2.5%* 2 ML ONE (12:25)
[2018-08-21] MEDS ORDERED: Proparacaine 0.5% OPHTH.SOL* 15 ML BTL ONE (12:26)
[2018-08-21 12:39] VITALS: BP 110/52
--- NOTE | 2018-08-21 13:45 | OP ---
DATE OF OPERATION: 08/21/18 [facility] DATE OF : 46 SURGEON: Alan Victor M.D. PREOPERATIVE DIAGNOSIS: Cataract, right eye. POSTOPERATIVE DIAGNOSIS: Cataract, right eye. OPERATIVE PROCEDURE: Extracapsular cataract extraction with intraocular lens implant right eye. DESCRIPTION OF PROCEDURE: The patient was brought to the operating room after being given 1/2% Alcaine with epinephrine drops in the preoperative area. The eye was prepped and draped in the usual sterile fashion. Sterile drape and eyelid speculum were placed. Again, topical 1/2% Alcaine with epinephrine was given. A paracentesis incision was made at the 9 o'clock position with the No.75 blade. Clear cornea incision 2.2 x 2.2-mm was created at the 12 o'clock position starting at the anterior limbus using the 2.2-mm keratome. The anterior chamber was irrigated with 0.4 mL of 1% non-preservative intracameral lidocaine and filled with DisCoVisc. A capsulorrhexis was completed using the cystotome and the Utrata forceps. Hydrodissection was performed with balanced salt solution. The lens nucleus was removed with the Phacoemulsification handpiece without incident. Cortex was removed with the irrigation-aspiration handpiece. The capsular bag was re-inflated using DisCoVisc and an [id number] 18 implant was inserted with the shooter. The irrigation-aspiration handpiece was used to remove all residual DisCoVisc. The eye was refilled with balanced salt solution and the wound checked and found to be watertight. Topical Maxitrol drops were given. [id number]/[facility] #: [id number] [facility]
== END 2018-08-21 12:45 | disposition home or self-care (01) ==
LOC: OREAST 09:56
PROVIDERS: ATTEND Specialist
DX: H25.11 Age-related nuclear cataract, right eye (principal); E11.9 Type 2 diabetes mellitus without complications; Z79.84 Long term (current) use of oral hypoglycemic drugs; H04.123 Dry eye syndrome of bilateral lacrimal glands; Z87.891 Personal history of nicotine dependence; K21.9 Gastro-esophageal reflux disease without esophagitis; Z86.73 Personal history of transient ischemic attack (TIA), and cerebral infarction without residual deficits; Z79.01 Long term (current) use of anticoagulants
CPT/HCPCS: A9270-GY; J2250; V2632

== ENCOUNTER 2018-08-28 08:27 | Day surgery (SDC) | payer MEDICARE, BC ==
[~2018-08-28 08:27] MED LIST changes: -Acetaminophen TAB* 325 MG PO PRN
[2018-08-28] MEDS ORDERED: Midazolam* 1 MG/ML 2 ML VIAL (2 MG) ONE (10:45)
[2018-08-28 11:19] VITALS: BP 91/51
--- NOTE | 2018-08-28 11:28 | OP ---
OPERATIVE NOTE: DATE OF OPERATION: 08/28/18 DATE OF : 46 SURGEON: Alan Vicotr M.D. PREOPERATIVE DIAGNOSIS: Cataract, left eye. POSTOPERATIVE DIAGNOSIS: Cataract, left eye. OPERATIVE PROCEDURE: Extracapsular cataract extraction with intraocular lens implant, left eye. PROCEDURE: The patient was brought to the operating room after being given 1/2% Alcaine with epineph rine drops in the preoperative area. The eye was prepped and draped in the usual sterile fashion. S terile drape and eyelid speculum were placed. Again, topical 1/2% Alcaine with epinephrine was given . A paracentesis incision was made at the 3 o'clock position with the No.75 blade. Clear cornea inc ision 2.2 x 2.2-mm was created at the 6 o'clock position starting at the anterior limbus using the 2. 2-mm keratome. The anterior chamber was irrigated with 0.4 mL of 1% non-preservative intracameral li docaine and filled with DisCoVisc. A capsulorrhexis was completed using the cystotome and the Utrata forceps. Hydrodissection was performed with balanced salt solution. The lens nucleus was removed wi th the Phacoemulsification handpiece without incident. Cortex was removed with the irrigation-aspira tion handpiece. The capsular bag was re-inflated using DisCoVisc and an SN60WF 16.5 implant was inse rted with the shooter. The irrigation-aspiration handpiece was used to remove all residual DisCoVisc . The eye was refilled with balanced salt solution and the wound checked and found to be watertight. Topical Maxitrol drops were given. [id number]/[facility] #: [id number]
[2018-08-28] MEDS ORDERED: Cyclopentolate 1% OPTH.SOL* 2 ML BTL ONE (14:12)
[2018-08-28] MEDS ORDERED: Ketorolac 0.5% OPHTH (NF) 0.5 % 5 ML BTL ONE (14:12)
[2018-08-28] MEDS ORDERED: Neomycin/Polymy/Dex OPTH.SUSP* MAXITROL 0.1% 5 ML ONE (14:12)
[2018-08-28] MEDS ORDERED: Lidocaine 2% w/ EPI 1:200,000* 20 ML VIAL ONE (14:12)
[2018-08-28] MEDS ORDERED: Lidocaine 1% MPF ** 5 ML VIAL ONE (14:12)
[2018-08-28] MEDS ORDERED: Phenylephrine OPHTH SOL 2.5%* 2 ML ONE (14:12)
[2018-08-28] MEDS ORDERED: acetaZOLAMIDE TAB* 250 MG ONE (14:12)
[2018-08-28] MEDS ORDERED: Povidone Iodine 5% OPTH* 30 ML BTL ONE (14:12)
[2018-08-28] MEDS ORDERED: Proparacaine 0.5% OPHTH.SOL* 15 ML BTL ONE (14:12)
== END 2018-08-28 11:28 | disposition home or self-care (01) ==
LOC: OREAST 08:27
PROVIDERS: ATTEND Specialist
DX: H25.12 Age-related nuclear cataract, left eye (principal); H04.123 Dry eye syndrome of bilateral lacrimal glands; E11.9 Type 2 diabetes mellitus without complications; Z79.84 Long term (current) use of oral hypoglycemic drugs; I10 Essential (primary) hypertension; F31.9 Bipolar disorder, unspecified; Z79.01 Long term (current) use of anticoagulants; Z87.891 Personal history of nicotine dependence; Z86.73 Personal history of transient ischemic attack (TIA), and cerebral infarction without residual deficits; R00.1 Bradycardia, unspecified; K21.9 Gastro-esophageal reflux disease without esophagitis
CPT/HCPCS: A9270-GY; J2250; V2632